=== PATIENT | female | born 1935 | race Caucasian/White ===

== ENCOUNTER → 2017-05-28 13:33 | Outpatient (CLI) | payer MEDICARE, OTHER, SELFPAY ==
[2017-05-28 14:45] LABS: Absolute Lymphocyte Count 1.37 X10^3/ul (0.83-4.51); Absolute Neutrophil Count 7.9 X10^3/uL (2.0-7.7); Basophil# 0.04 X10^3/uL; Basophil% 0.4 % (0-1); Eosinophil# 0.34 X10^3/uL; Eosinophils% 3.1 % (0-5); Hematocrit 38.7 % (37-47); Hemoglobin 12.3 g/dl (12.0-15.0); Lymphocyte # 1.37 X10^3/ul (4.0); Lymphocyte % 12.5 % (19-41); Mean Corp Hgb Conc 31.8 g/gl (32-36); Mean Corpuscular Hgb 30.1 pg (27.0-32.0); Mean Corpuscular Volume 94.9 fL (81-99); Mean Platelet Vol. 11.1 fl (6.2-12.0); Monocyte# 1.28 X10^3/uL; Monocyte% 11.7 % (0-10); Neutrophil # 7.86 X10^3/uL (2.7-7.7); Platelet Count 155 K/mm3 (150-450); RBC Distribution Width CV 13.8 % (11.6-14.6); Red Blood Count 4.08 M/mm3 (4.2-5.4); White Blood Count 10.9 K/mm3 (4.4-11.0)
[2017-05-28 14:48] LABS: POSITIVE COUNT NO; POSITIVE DIFFERENTIAL NO; POSITIVE MORPHOLOGY NO
[2017-05-28 15:25] LABS: Vitamin D,25 Hydroxy 25.1 ng/mL (19.95-100.01)
[2017-05-28 15:27] LABS: AST(SGOT) 9 U/L (15-37); Alanine Aminotransfer ALT/SGPT 12 U/L (13-56); Albumin, Serum 2.8 g/dL (3.2-5.0); Alkaline Phosphatase 79 U/L (45-117); Anion Gap 5 (5-15); BUN 27 mg/dL (7-18); BUN/Creat Ratio 24.5 RATIO (10-20); Calcium,Total 9.4 mg/dL (8.5-10.1); Chloride 107 mmol/L (98-107); EST Glomerular Filtration Rate 51 mL/min (>60); Est Glom Filt Rate - Afr Amer 62 mL/min (>60); Globulin 2.9 g/dL (2.2-4.2); Glucose 87 mg/dL (70-110); Potassium 4.4 mmol/L (3.5-5.1); Protein, Total 5.7 g/dL (6.4-8.2); Sodium Level 144 mmol/L (136-145); Thyroid Stim Hormone (TSH) 1.16 uIU/mL (0.358-3.74)
== END ==
PROVIDERS: Family Provider Family Medicine Geriatric Medicine; PCP Family Medicine Geriatric Medicine; Visit Provider Family Medicine Geriatric Medicine
DX: E55.9 Vitamin D deficiency, unspecified (principal); I10 Essential (primary) hypertension
CPT/HCPCS: 36415; 80053; 82306; 84443; 85025

== ENCOUNTER 2017-09-05 01:36 | Emergency (ER) | payer MEDICARE, OTHER, SELFPAY ==
[2017-09-05 01:37] VITALS: BP 161/71; PULSE 66; RESP 18; TEMP 36.7; O2SAT 93; BMI 51.1
--- NOTE | 2017-09-05 02:16 | ED.VISSUMM ---
- ER Visit Summary Date of Service: 09/05/17 Chief Complaint: Laceration History of Present Illness: The patient is a [address] Velazquez. She reports that she caught her right thigh on a screw on her wheelchair. Reports that she has a dull pain that is 1 out of 10 severity. She did not fall. No other injuries. She is unsure when her last tetanus shot was. Physical Examination: Vitals: Stable. Afebrile. General: Well-nourished and well-developed. Head: Normocephalic atraumatic. Neck: Supple, no lymphadenopathy. No JVD. Nontender. Cardiovascular: Regular rate and rhythm. No murmurs. Respiratory: No respiratory distress. Clear to auscultation bilaterally. Abdominal: Soft, nontender, nondistended, normal bowel sounds. No guarding, rebound, or peritoneal signs. Back: Nontender. Extremities: 2+ edema of her legs bilaterally. There is a 15 cm laceration to the medial right thigh with no active bleeding. This extends to subcutaneous tissue. She is neurovascularly intact distal to this. Skin: Normal color, no rash. Neurologic: Alert and oriented ?3. Cranial nerves II through XII are intact. Normal strength and sensation. Psych: Normal affect. Emergency Department Course and Treatment: Patient had her tetanus updated. She was given a dose of fentanyl IM and had the laceration repaired. She tolerated it well. Treatment Plan: The patient has weeping from her lymphedema from this wound. I do not feel that she requires admission to the hospital and the patient does not either. However, I did leave a message for case management in an attempt to set up home health care for the patient while this is healing. I suspect that she will need fairly frequent dressing changes to keep this dry. She is instructed to follow-up with Dr. Edmonds in 10-14 days for suture removal. Return to the emergency department for any worsening symptoms. Disposition: To home in improved and stable condition. Impression: 1. Right thigh laceration, 15 cm, repaired. Procedure note: Wound was cleansed with chlorhexidine soap. Anesthetized with 1% lidocaine without epinephrine. Copiously irrigated with normal saline. Wound was explored there is no foreign material present. It was closed with 10 simple interrupted 4-0 ethilon sutures. The patient tolerated it well. This note was generated with [employer] dictation software. It may contain incorrect words, spelling, and punctuation that were not noted in review of the chart prior to signing ED Disposition - Plan for ED Patient: Chief Complaint: Laceration Instructions: ED Laceration Ext Sutr Stap Tape Referrals: Fernando Velazquez Chi, MD [Primary Care Provider] - 10-14 Days suture removal
[2017-09-05] MEDS: Diphth,Pertuss(Acell),Tet Vac 0.5 ML Vial IM (02:21)
[2017-09-05] MEDS: fentaNYL 100 MCG/2 ML Ampul 50 MCG IM (02:22)
[2017-09-05 04:45] VITALS: PULSE 86; RESP 16; O2SAT 98
--- NOTE | 2017-09-05 09:41 | CM.ED ---
Voicemail received from Dr. Tran recommending home health setup for dressing changes. Call placed to Rima at [facility]. Rima states she'll call me back with determination. Awaiting return call.
--- NOTE | 2017-09-05 14:54 | CM.ED ---
Call from Rima with [facility] confirming that the patient has agreed to home health services. RN services for dressing changes will be provided and Dr. Velazquez will follow.
== END 2017-09-05 04:45 | disposition home or self-care (01) ==
PROVIDERS: Emergency Provider Emergency Medicine; Family Provider Family Medicine Geriatric Medicine; PCP Family Medicine Geriatric Medicine
DX: S71.111A Laceration without foreign body, right thigh, initial encounter (principal); W26.8XXA Contact with other sharp object(s), not elsewhere classified, initial encounter; Y93.9 Activity, unspecified; Y92.9 Unspecified place or not applicable; I89.0 Lymphedema, not elsewhere classified; J45.909 Unspecified asthma, uncomplicated; I10 Essential (primary) hypertension; Z79.899 Other long term (current) drug therapy
CPT/HCPCS: 12005; 90471; 90715; 96372; 99285

== ENCOUNTER → 2018-06-11 15:14 | Outpatient (CLI) | payer MEDICARE, OTHER, SELFPAY ==
[2018-06-11 17:00] LABS: Absolute Lymphocyte Count 1.59 X10^3/ul (0.83-4.51); Absolute Neutrophil Count 4.1 X10^3/uL (2.0-7.7); Basophil# 0.04 X10^3/uL; Basophil% 0.6 % (0-1); Eosinophil# 0.31 X10^3/uL; Eosinophils% 4.6 % (0-5); Hematocrit 37.3 % (37-47); Hemoglobin 12.1 g/dl (12.0-15.0); Lymphocyte # 1.59 X10^3/ul (4.0); Lymphocyte % 23.8 % (19-41); Mean Corp Hgb Conc 32.4 g/gl (32-36); Mean Corpuscular Hgb 30.3 pg (27.0-32.0); Mean Corpuscular Volume 93.5 fL (81-99); Mean Platelet Vol. 10.5 fl (6.2-12.0); Monocyte% 10.5 % (0-10); Neutrophil # 4.05 X10^3/uL (2.7-7.7); Neutrophil % 60.5 % (47-70); Platelet Count 158 K/mm3 (150-450); RBC Distribution Width CV 12.8 % (11.6-14.6); RBC Distribution Width SD 43.8 fl (35.1-43.9); Red Blood Count 3.99 M/mm3 (4.2-5.4); White Blood Count 6.7 K/mm3 (4.4-11.0)
[2018-06-11 17:01] LABS: POSITIVE COUNT NO; POSITIVE DIFFERENTIAL NO; POSITIVE MORPHOLOGY NO
[2018-06-11 17:14] LABS: Vitamin D,25 Hydroxy 48.6 ng/mL (29.95-100.01)
[2018-06-11 17:17] LABS: ALB/GLOB Ratio 1.1 RATIO (0.9-2.4); AST(SGOT) 16 U/L (15-37); Alanine Aminotransfer ALT/SGPT 14 U/L (13-56); Albumin, Serum 3.2 g/dL (3.2-5.0); Alkaline Phosphatase 66 U/L (45-117); Anion Gap 5 (5-15); BUN 22 mg/dL (7-18); BUN/Creat Ratio 16.3 RATIO (10-20); Calcium,Total 10.1 mg/dL (8.5-10.1); Chloride 106 mmol/L (98-107); Creatinine, Serum 1.35 mg/dL (0.55-1.02); EST Glomerular Filtration Rate 40 mL/min (>60); Est Glom Filt Rate - Afr Amer 48 mL/min (>60); Globulin 2.9 g/dL (2.2-4.2); Glucose 90 mg/dL (74-106); Potassium 4.7 mmol/L (3.5-5.1); Protein, Total 6.1 g/dL (6.4-8.2); Sodium Level 142 mmol/L (136-145); Thyroid Stim Hormone (TSH) 1.85 uIU/mL (0.358-3.74)
== END ==
PROVIDERS: Family Provider Family Medicine Geriatric Medicine; PCP Family Medicine Geriatric Medicine; Visit Provider Family Medicine Geriatric Medicine
DX: E55.9 Vitamin D deficiency, unspecified (principal); I10 Essential (primary) hypertension
CPT/HCPCS: 36415; 80053; 82306; 84443; 85025

== ENCOUNTER → 2019-03-09 13:19 | Outpatient (CLI) | payer MEDICARE, OTHER, SELFPAY ==
[2019-03-09 15:47] LABS: Absolute Lymphocyte Count 1.25 X10^3/uL (0.83-4.51); Absolute Neutrophil Count 4.3 X10^3/uL (2.0-7.7); Basophil# 0.05 X10^3/uL; Basophil% 0.7 % (0-1); Eosinophil# 0.63 X10^3/uL; Hematocrit 42.2 % (37-47); Hemoglobin 12.9 g/dL (12.0-15.0); Lymphocyte # 1.25 X10^3/ul (4.0); Lymphocyte % 17.9 % (19-41); Mean Corp Hgb Conc 30.6 g/dL (32-36); Mean Corpuscular Hgb 29.5 pg (27.0-32.0); Mean Corpuscular Volume 96.6 fL (81-99); Mean Platelet Vol. 10.2 fl (6.2-12.0); Monocyte# 0.72 X10^3/uL; Monocyte% 10.3 % (0-10); NRBC Flagged by Analyzer 0 % (0-5); Neutrophil # 4.29 X10^3/uL (2.7-7.7); Neutrophil % 61.7 % (47-70); Platelet Count 190 K/mm3 (150-450); RBC Distribution Width CV 12.6 % (11.6-14.6); RBC Distribution Width SD 44.9 fl (35.1-43.9); Red Blood Count 4.37 M/mm3 (4.2-5.4)
[2019-03-09 16:06] LABS: Vitamin D,25 Hydroxy 47.3 ng/mL (29.95-100.01)
[2019-03-09 16:20] LABS: ALB/GLOB Ratio 0.8 RATIO (0.9-2.4); AST(SGOT) 11 U/L (15-37); Alanine Aminotransfer ALT/SGPT 13 U/L (13-56); Albumin, Serum 2.8 g/dL (3.2-5.0); Alkaline Phosphatase 71 U/L (45-117); Anion Gap 2 (5-15); BUN 28 mg/dL (7-18); BUN/Creat Ratio 24.3 RATIO (10-20); Calcium,Total 9.4 mg/dL (8.5-10.1); Chloride 105 mmol/L (98-107); Creatinine, Serum 1.15 mg/dL (0.55-1.02); EST Glomerular Filtration Rate 48 mL/min (>60); Est Glom Filt Rate - Afr Amer 58 mL/min (>60); Globulin 3.6 g/dL (2.2-4.2); Glucose 79 mg/dL (74-106); Potassium 4.5 mmol/L (3.5-5.1); Protein, Total 6.4 g/dL (6.4-8.2); Sodium Level 141 mmol/L (136-145); Thyroid Stim Hormone (TSH) 3.08 uIU/mL (0.358-3.74)
[2019-03-09 17:07] LABS: M R Staph aureus DNA By PCR Negative (Negative); Probe Check PASS; Staph aureus DNA By PCR POSITIVE (Negative)
== END ==
PROVIDERS: Family Provider Family Medicine Geriatric Medicine; PCP Family Medicine Geriatric Medicine; Visit Provider Family Medicine Geriatric Medicine
DX: I10 Essential (primary) hypertension (principal); E55.9 Vitamin D deficiency, unspecified; B95.62 Methicillin resistant Staphylococcus aureus infection as the cause of diseases classified elsewhere
CPT/HCPCS: 36415; 80053; 82306; 84443; 85025; 87070; 87077; 87186; 87205; 87640

== ENCOUNTER 2019-03-23 14:00 | Outpatient (RCR) | payer MEDICARE, OTHER, SELFPAY ==
[2019-03-16 13:59] VITALS: BP 151/62; PULSE 132; RESP 18; TEMP 36.7
--- NOTE | 2019-03-16 16:46 | PCM.WC.HP ---
(1) Ulcer of left lower leg Status: Acute Current Visit: Yes Code(s): L97.929 - Non-pressure chronic ulcer of unspecified part of left lower leg with unspecified severity (2) Edema Status: Chronic Current Visit: Yes Code(s): R60.9 - Edema, unspecified (3) Debility Status: Chronic Current Visit: Yes Code(s): R53.81 - Other malaise History of Present Illness Date of Service: 03/17/19 Chief Complaint: Opened area on left lower leg that will not heal. History of Wound: Patient sits in her hover round. She is able to stand to transfer. She hit her left leg several weeks ago and developed a big bruise. She has been doing hydrogen peroxide and neosporin to the opened area. She went to see her PCP who placed her on Keflex and Doxycycline which she just finished today. Her PCP also did a wound culture on 03/09/19 which grew Pseudomonas aeroginosa and Pasturella species. Will start her on Levaquin daily. Wound care: Alysa with tubigrip three times per week. Will order home health to assist with wound care. She lives at home and her son and daughter in law live with her but her son has a bad back and no one assists her with her care. Will order Arterial and venous studies. We are unable to get her out of her wheelchair on to a bed for ABIs. Today she denies fever and states she has a good appetite. Past Medical History Past Medical History: Chronic Problems Edema (Chronic) Debility (Chronic) GERD (gastroesophageal reflux disease) (Chronic) Depression (Chronic) Tinea corporis (Chronic) Hyperlipidemia (Chronic) Tinea cruris (Chronic) Lymphedema (Chronic) Rheumatoid arthritis (Chronic) HTN (hypertension) (Chronic) Hypothyroid (Chronic) Fibromyalgia (Chronic) Whitney rash of groin (Chronic) Surgical History: appendectomy, cholecystectomy, hysterectomy, mastectomy - Bilateral., tonsillectomy, - - 9 breast lumps removed, breast reduction. Allergies/Adverse Reactions: Allergies lisinopril Allergy (Verified 09/05/17 01:37) Unknown Penicillins Allergy (Verified 03/16/19 14:52) Unknown Home Medications: Ambulatory Orders Medication Instructions Recorded Baclofen 10 mg PO QHS 04/29/17 Folic Acid 1 mg PO DAILY@0800 04/29/17 Levothyroxine [Synthroid] 75 mcg PO DAILY 04/29/17 Nebivolol HCl [Bystolic] 5 mg PO DAILY 04/29/17 Albuterol Inhaler [Ventolin Hfa 2 puff INHALATION Q4H PRN PRN 03/16/19 (SP)] Esomeprazole Mag Trihydrate 40 mg PO DAILY 03/16/19 [Nexium] Multivitamin with Minerals 1 ea PO DAILY 03/16/19 [Multiple Vitamin] Valsartan/Hydrochlorothiazide 1 ea PO DAILY 03/16/19 [Valsartan-Hctz 320-25 mg Tab] Vortioxetine Hydrobromide 10 mg PO DAILY 03/16/19 [Trintellix] - Family History Paternal No pertinent history Maternal - - no heart disease Smoking Status: Never smoker Review of Systems Constitutional: Denies: Chills, Fever, Weight Change Eyes: Denies: Pain, Vision Change HEENT: Denies: Difficulty Hearing, Difficulty Swallowing, Sinus Congestion Cardiovascular: Denies: Chest Pain, Palpitations Respiratory: Denies: Cough, Shortness of Breath Musculoskeletal: Reports: Joint stiffness Skin: Reports: Dryness, Wounds - left medial distal leg ulcer Neurological: Denies: Slurred speech, Confusion, Difficulty swallowing Psychiatric: Denies: Anxiety Endocrine: Denies: Heat/ Cold Intolerance - Physical Exam Vital Signs Temp Pulse Resp BP 98.1 F 132 H 18 151/62 H 03/16/19 13:59 03/16/19 13:59 03/16/19 13:59 03/16/19 13:59 General: Alert, Oriented x3, Cooperative HEENT: Atraumatic Oral: Moist Mucosa Lungs: Clear to auscultation, Normal air movement, No rhonchi, No wheeze Cardiovascular: Regular rate, Regular Rhythm Abdomen: Bowel Sounds Present, Soft, Obese Extremities: Capillary Refill Less than 3 Seconds, Diminished Peripheral Pulses, Edema Skin: Ulcer/ Wound - left medial distal leg ulcer Wound Measurements and Assessment WC - Nurse 1 - General Ulcer Measurement Start: 03/16/19 13:58 Freq: Status: Active Protocol: Activity Type Activity Date Activity User E-Sign Co-Sign Detail Recorded Client Recorded Date Recorded By Document 03/16/19 13:59 MW [id number] 03/16/19 14:20 MW 03/16/19 13:59 Wound Center Nurse 1 [Ulcer Assessment] #1 left medial LE -Combined with other wound No -Current Size (cm) - Length 3.6 -Current Size (cm) - Width 5.5 -Current Size (cm) - Depth 0.1 -Total Square Cm 19.80 -Date of Last Picture (Recall this 03/16/19 field) -Photo Taken Yes -Epithelialization None Present -Tunneling No -Undermining/Tunneling No -Circular Undermining No -Exudate Amt Large -Exudate Type Serosanguineous -Wound Margin Flat & Intact -Granulation Amt Medium (34-66%) -Granulation Quality Red -Necrosis Amt Medium (34-66%) -Necrotic Tissue Type Adherent Slough -Structure Exposed N/A -Texture (Kathryn-wound Skin Appearance) Assessed, Localized Edema -Moisture (Kathryn-wound Skin Appearance No Abnormality, ) Assessed -Color (Kathryn-wound Skin Appearance) Assessed, Hemosiderin Staining -Temperature (Kathryn-wound Skin No Abnormality Appearance) (Pt Warm) -Tenderness on Palpation (Kathryn-wound Yes Skin Appearance) -Ulcer Cleansing Rinsed/ Irrigated with Saline -Foul Odor after Cleansing No -Anesthetic Used 5% Lidocaine Gel [Edema Assessment] -Lower Limb Edema Present Yes -Right Calf (cm) 49.0 -Right Ankle (cm) 26.5 -Left Calf (cm) 49.0 -Left Ankle (cm) 27.5 WC - Nurse 2 - General Ulcer CM Notes Start: 03/16/19 13:58 Freq: Status: Active Protocol: Activity Type Activity Date Activity User E-Sign Co-Sign Detail Recorded Client Recorded Date Recorded By Document 03/16/19 14:55 [id number] 03/16/19 14:56 03/16/19 14:55 Wound Center Nurse 2 [Procedure/Treatment] #1 left medial LE -Time 14:55 -Correct Patient Yes -Correct Side, Site, Position Yes -Correct Procedure Yes -Procedure Performed Yes -Type of Procedure Debridement -Clinical Debridement Subcutaneous -Post Debridement Size (cm) - Length 3.5 -Post Debridement Size (cm) - Width 4.3 -Post Debridement Size (cm) - Depth 0.3 -Total Square Cm 15.05 -Wound/Ulcer Outcome Not Healed -Ulcer Cleansing Rinsed/ Irrigated with Saline -Foul Odor after Cleansing No -Bioengineered Tissue No -Bleeding Controlled with Pressure -Offloading No -Treatment Response Procedure Tolerated Well [See Physician Procedure note for Specifics] Pain Scale: 0-10 Numeric [Pain] -Is Patient Pain Free? Yes Musculoskeletal: No Tenderness to Palpation of Joints or Extremities Neurological: Neuro grossly intact Psych/Mental Status: Normal Affect, Appropriate Debridement Note Post-Debridement Measurements/Treatment WC - Nurse 2 - General Ulcer CM Notes Start: 03/16/19 13:58 Freq: Status: Active Protocol: Activity Type Activity Date Activity User E-Sign Co-Sign Detail Recorded Client Recorded Date Recorded By Document 03/16/19 14:55 [id number] 03/16/19 14:56 03/16/19 14:55 Wound Center Nurse 2 #1 left medial LE -Time 14:55 -Correct Patient Yes -Correct Side, Site, Position Yes -Correct Procedure Yes -Procedure Performed Yes -Type of Procedure Debridement -Clinical Debridement Subcutaneous -Post Debridement Size (cm) - Length 3.5 -Post Debridement Size (cm) - Width 4.3 -Post Debridement Size (cm) - Depth 0.3 -Total Square Cm 15.05 -Wound/Ulcer Outcome Not Healed -Ulcer Cleansing Rinsed/ Irrigated with Saline -Foul Odor after Cleansing No -Bioengineered Tissue No -Bleeding Controlled with Pressure -Offloading No -Treatment Response Procedure Tolerated Well Pain Scale: 0-10 Numeric Is Patient Pain Free? Yes Wound debrided: medial distal leg Laterality: Left Type of Debridement: Excisional debridement Anesthesia Used: 5% Lidocaine Gel Depth: Down to and including healthy tissue, in the subcutaneous layer Percentage of wound debrided: 100 Instrument Used: 5mm curette Tissue Removed: subcutaneous tissue and slough Severity: Fat Layer Exposed Amount of bleeding with debridement: Mild Bleeding Controlled with: Pressure, Compression and gauze Patient tolerated procedure well Assessment/Plan Active Problems Ulcer of left lower leg (Acute) Edema (Chronic) Debility (Chronic) Assessment: 1. Ulcer of left lower leg. 2. Edema. 3. Debility Plan: Patient was evaluated in the wound care center today and a subcutaneous debridement was performed. Patient sits in a wheelchair and hit her left leg several weeks ago and developed a big bruise. She states that it did bleed some. She has been doing hydrogen peroxide and neosporin to the opened area. She went to see her PCP who placed her on Keflex and Doxycycline which she just finished today. Her PCP also did a wound culture on 03/09/19 which grew Pseudomonas aeroginosa and Pasturella species. Will start her on Levaquin daily. Wound care: Alysa with tubigrip three times per week. Will order home health to assist with wound care. She lives at home and her son and daughter in law live with her but her son has a bad back and no one assists her with her care. Will order Arterial and venous studies. We are unable to get her out of her wheelchair on to a bed for ABIs. Encouraged increase in protein intake to help with wound healing. Code Visit Office Visits / Consults: [id number] OV L4 Est - 25 modifier 111xxx-113xx: [id number] Corinne subq tissue 20 sq cm/<
[2019-03-23 14:13] VITALS: PULSE 88; RESP 18; TEMP 36.6
--- NOTE | 2019-03-23 17:04 | PCM.WC.PN ---
(1) Ulcer of left lower leg Status: Chronic Code(s): L97.929 - Non-pressure chronic ulcer of unspecified part of left lower leg with unspecified severity (2) Edema Status: Chronic Code(s): R60.9 - Edema, unspecified (3) Debility Status: Chronic Code(s): R53.81 - Other malaise Type of Wound Date of Service: 03/23/19 Chief Complaint: Opened area on left lower leg that will not heal. History of Wound: Patient sits in her hover round. She is able to stand to transfer. She hit her left leg several weeks ago and developed a big bruise. She has been doing hydrogen peroxide and neosporin to the opened area. She went to see her PCP who placed her on Keflex and Doxycycline which she just finished today. Her PCP also did a wound culture on 03/09/19 which grew Pseudomonas aeroginosa and Pasturella species. Will start her on Levaquin daily. Wound care: Alysa with tubigrip with dressing changes three times per week. Will order home health to assist with wound care. She lives at home and her son and daughter in law live with her but her son has a bad back and no one assists her with her care. Will order Arterial and venous studies. We are unable to get her out of her wheelchair on to a bed for ABIs. Today she denies fever and states she has a good appetite. Progress of Wound: Improved - Physical Exam Vital Signs Temp Pulse Resp BP 98 F 88 18 151/62 H 03/23/19 14:13 03/23/19 14:13 03/23/19 14:13 03/16/19 13:59 General: Alert, Oriented x3, Cooperative HEENT: Atraumatic Oral: Moist Mucosa Lungs: Normal air movement Cardiovascular: Regular rate Abdomen: Obese Extremities: Capillary Refill Less than 3 Seconds, Diminished Peripheral Pulses, Edema Skin: Ulcer/ Wound - Left medial ankle/distal lower leg Wound Measurements and Assessment WC - Nurse 1 - General Ulcer Measurement Start: 03/16/19 13:58 Freq: Status: Active Protocol: Activity Type Activity Date Activity User E-Sign Co-Sign Detail Recorded Client Recorded Date Recorded By Document 03/23/19 14:13 RB [id number] 03/23/19 14:16 RB 03/23/19 14:13 Wound Center Nurse 1 [Ulcer Assessment] #1 left medial LE -Current Size (cm) - Length 3.5 -Current Size (cm) - Width 5.5 -Current Size (cm) - Depth 6.2 -Total Square Cm 19.25 -Photo Taken No -Exudate Amt Small -Exudate Type Serosanguineous -Wound Margin Distinct, Outline Attached -Granulation Amt Large (67-100%) -Granulation Quality Red -Necrosis Amt Small (1-33%) -Necrotic Tissue Type Adherent Slough -Structure Exposed N/A -Texture (Kathryn-wound Skin Appearance) Scarring -Moisture (Kathryn-wound Skin Appearance No Abnormality ) -Color (Kathryn-wound Skin Appearance) Hemosiderin Staining -Temperature (Kathryn-wound Skin No Abnormality Appearance) (Pt Warm) -Tenderness on Palpation (Kathryn-wound No Skin Appearance) -Foul Odor after Cleansing No -Anesthetic Used 4% Lidocaine Solution [Edema Assessment] -Left Calf (cm) 47 -Left Ankle (cm) 27 WC - Nurse 2 - General Ulcer CM Notes Start: 03/16/19 13:58 Freq: Status: Active Protocol: Activity Type Activity Date Activity User E-Sign Co-Sign Detail Recorded Client Recorded Date Recorded By Document 03/23/19 14:51 [id number] 03/23/19 14:52 03/23/19 14:51 Wound Center Nurse 2 [Procedure/Treatment] #1 left medial LE -Time 14:52 -Correct Patient Yes -Correct Side, Site, Position Yes -Correct Procedure Yes -Procedure Performed Yes -Type of Procedure Debridement -Clinical Debridement Subcutaneous -Post Debridement Size (cm) - Length 3.5 -Post Debridement Size (cm) - Width 5 -Post Debridement Size (cm) - Depth 0.3 -Total Square Cm 17.5 -Wound/Ulcer Outcome Not Healed -Ulcer Cleansing Rinsed/ Irrigated with Saline -Foul Odor after Cleansing No -Bioengineered Tissue No -Bleeding Controlled with Pressure -Offloading No -Treatment Response Procedure Tolerated Well [See Physician Procedure note for Specifics] Pain Scale: 0-10 Numeric [Pain] -Is Patient Pain Free? Yes Musculoskeletal: No Tenderness to Palpation of Joints or Extremities Neurological: Neuro grossly intact Psych/Mental Status: Normal Affect, Appropriate Debridement Note Post-Debridement Measurements/Treatment WC - Nurse 2 - General Ulcer CM Notes Start: 03/16/19 13:58 Freq: Status: Active Protocol: Activity Type Activity Date Activity User E-Sign Co-Sign Detail Recorded Client Recorded Date Recorded By Document 03/16/19 14:55 [id number] 03/16/19 14:56 Document 03/23/19 14:51 [id number] 03/23/19 14:52 03/16/19 03/23/19 14:55 14:51 Wound Center Nurse 2 #1 left medial LE -Time 14:55 14:52 -Correct Patient Yes Yes -Correct Side, Site, Position Yes Yes -Correct Procedure Yes Yes -Procedure Performed Yes Yes -Type of Procedure Debridement Debridement -Clinical Debridement Subcutaneous Subcutaneous -Post Debridement Size (cm) - Length 3.5 3.5 -Post Debridement Size (cm) - Width 4.3 5 -Post Debridement Size (cm) - Depth 0.3 0.3 -Total Square Cm 15.05 17.5 -Wound/Ulcer Outcome Not Healed Not Healed -Ulcer Cleansing Rinsed/ Rinsed/ Irrigated with Irrigated with Saline Saline -Foul Odor after Cleansing No No -Bioengineered Tissue No No -Bleeding Controlled with Pressure Pressure -Offloading No No -Treatment Response Procedure Procedure Tolerated Well Tolerated Well Pain Scale: 0-10 Numeric Is Patient Pain Free? Yes Yes Wound debrided: medial ankle/distal leg Laterality: Left Type of Debridement: Excisional debridement Anesthesia Used: 5% Lidocaine Gel Depth: Down to and including healthy tissue, in the subcutaneous layer Percentage of wound debrided: 100 Instrument Used: 5mm curette Tissue Removed: Subcutaneous tissue and slough Severity: Fat Layer Exposed Amount of bleeding with debridement: Mild Bleeding Controlled with: Pressure Patient tolerated procedure well Assessment/Plan Assessment: 1. Ulcer of left lower leg. 2. Edema. 3. Debility Plan: Patient was evaluated in the wound care center today and a subcutaneous debridement was performed. Patient sits in a wheelchair and hit her left leg several weeks ago and developed a big bruise. She states that it did bleed some. She had been applying hydrogen peroxide and neosporin to the opened area. She went to see her PCP who placed her on Keflex and Doxycycline which she just finished today. Her PCP also did a wound culture on 03/09/19 which grew Pseudomonas aeroginosa and Pasturella species. Will start her on Levaquin daily. Wound care: Alysa with tubigrip three times per week. Will order home health to assist with wound care. She lives at home and her son and daughter in law live with her but her son has a bad back and no one assists her with her care. Will order Arterial and venous studies which is scheduled 03/30. Encouraged increase in protein intake to help with wound healing. Follow up in one week. Code Visit 111xxx-113xx: [id number] Corinne subq tissue 20 sq cm/<
== END 2019-03-27 23:59 ==
LOC: WC 14:00
PROVIDERS: Family Provider Family Medicine Geriatric Medicine; PCP Family Medicine Geriatric Medicine; Visit Provider Nurse Practitioner Family
DX: L97.822 Non-pressure chronic ulcer of other part of left lower leg with fat layer exposed (principal); R60.0 Localized edema; K21.9 Gastro-esophageal reflux disease without esophagitis; F32.9 Major depressive disorder, single episode, unspecified; E78.5 Hyperlipidemia, unspecified; E03.9 Hypothyroidism, unspecified; M06.9 Rheumatoid arthritis, unspecified; I10 Essential (primary) hypertension; I89.0 Lymphedema, not elsewhere classified; M79.7 Fibromyalgia; Z79.899 Other long term (current) drug therapy
CPT/HCPCS: 11042; 99213; G0463

== ENCOUNTER 2019-03-30 12:45 | Outpatient (RCR) | payer MEDICARE, OTHER, SELFPAY ==
--- NOTE | 2019-03-30 12:49 | VDLE_ITS ---
Reason For Study: ULCER RIGHT LEFT FV is compressible, spontaneous, phasic, FV is compressible, spontaneous, phasic, competent and demonstrates normal competent and demonstrates normal augmentation. augmentation. POP V is compressible, spontaneous, phasic, POP V is compressible, spontaneous, phasic, competent and demonstrates normal competent and demonstrates normal augmentation. augmentation. T/P Trunk is compressible. T/P Trunk is compressible. PTV is compressible. PTV is compressible. RT PerV is compressible. LT PerV is compressible. Rt CFV/SFJ not visualized due to pannus. Left CFV was not visualized due to pannus. Rt GSV at SFJ was not visualized due to Left GSV at SFJ is compressible and pannus. competent. Rt GSV prox to distal thigh was compressible Left GSV above knee was compressible and and competent. competent. Rt GSV below knee was compressible and Left GSV below knee was compressible and competent to mid calf. competent. Rt GSV distal calf was INCOMPETENT for Left SSV was compressible and competent. greater than .5 sec. Unable to assess distal GSV due to ulcer. Rt SSV is compressible and competent Study was technically limited. throughout. Study was technically limited. Procedure Exam performed in department. The exam was of poor technical quality due to pt body habitus. A preliminary report was called and/or faxed to [facility]. UNABLE TO PERFORM ARTERIAL STUDY DUE TO PT PAIN INTOLERANCE. Interpretation Summary Deep veins of the lower extremities are bilaterally patent and compressible segmentally. There is no evidence of deep vein thrombosis on either side. Valvular competence appears intact within the proximal deep venous systems bilaterally. The great saphenous veins appear bilaterally patent and compressible segmentally. The common femoral veins bilaterally, and the right sapheno-femoral junction, were not visualized due to the patient's pannus. The right great saphenous vein is competent from the proximal thigh to the mid-calf, but incompetent in the right distal calf. The left great saphenous vein appears segmentally competent. The distal left great saphenous vein was not assessed due to the presence of an ulcer. Small saphenous veins are patent and competent bilaterally. Ordering Physician: Angie Suresh Referring Physician: SANJU WILLIAM CHI Performed By: Celina Whitley, KHOA, RVT
[2019-03-30 14:35] VITALS: BMI 51.1
--- NOTE | 2019-03-30 16:17 | PN.PCM_ITS ---
(1) Ulcer of left lower leg Status: Chronic Code(s): L97.929 - Non-pressure chronic ulcer of unspecified part of left lower leg with unspecified severity (2) Edema Status: Chronic Code(s): R60.9 - Edema, unspecified (3) Lymphedema Status: Chronic Code(s): I89.0 - Lymphedema, not elsewhere classified (4) Debility Status: Chronic Code(s): R53.81 - Other malaise Type of Wound Date of Service: 03/30/19 Chief Complaint: Opened area on left lower leg that will not heal. History of Wound: Patient sits in her hover round. She is able to stand to transfer. She hit her left leg several weeks ago and developed a big bruise. She has been doing hydrogen peroxide and neosporin to the opened area. She went to see her PCP who placed her on Keflex and Doxycycline which she just finished today. Her PCP also did a wound culture on 03/09/19 which grew Pseudomonas aeroginosa and Pasturella species. She completes the Levaquin tomorrow. Wound care: Alysa with double Tubigrip with dressing changes three times per week. She has home health to assist with wound care. She lives at home and her son and daughter in law live with her but her son has a bad back and no one assists her with her care. On 03/30/2019 she had her venous studies which showed deep veins of the lower extremities are bilaterally patent and compressible segmentally. There is no evidence of deep vein thrombosis on either side. Valvular competence appears intact within the proximal deep venous systems bilaterally. The great saphenous veins appear bilaterally patent and compressible segmentally. The common femoral veins bilaterally and the right sapheno-femoral junction, were not visualized to the patient's pannus. The right great saphenous vein is competent from the proximal thigh to the mid?calf, but incompetent in the right distal calf. The left great saphenous vein appears segmentally Competent. The distal left great saphenous vein was not assessed due the presence of an ulcer. Small saphenous veins are patent and competent bi laterally. Patient declined the arterial studies due to they were uncomfortable for her. Today she denies fever and states she has a good appetite. Progress of Wound: Stable. - Physical Exam General: Alert, Oriented x3, Cooperative HEENT: Atraumatic Oral: Moist Mucosa Lungs: Normal air movement Cardiovascular: Regular rate Abdomen: Obese Extremities: Capillary Refill Less than 3 Seconds, Diminished Peripheral Pulses, Edema Skin: Ulcer/ Wound - Left medial lower leg ulcer. Wound Measurements and Assessment WC - Nurse 1 - General Ulcer Measurement Start: 03/30/19 14:35 Freq: Status: Active Protocol: Activity Type Activity Date Activity User E-Sign Co-Sign Detail Recorded Client Recorded Date Recorded By Document 03/30/19 14:35 [facility] [id number] 03/30/19 14:42 [facility] 03/30/19 14:35 Wound Center Nurse 1 [Ulcer Assessment] #1 left medial LE -Combined with other wound No -Current Size (cm) - Length 3.1 -Current Size (cm) - Width 3.9 -Current Size (cm) - Depth 0.1 -Total Square Cm 12.09 -Photo Taken No -Epithelialization Small 1-33% -Tunneling No -Undermining/Tunneling No -Circular Undermining No -Exudate Amt Small -Exudate Type Serosanguineous -Wound Margin Distinct, Outline Attached -Granulation Amt Large (67-100%) -Granulation Quality Red -Slough/Fibrin Yes -Necrosis Amt Small (1-33%) -Necrotic Tissue Type Adherent Slough -Texture (Kathryn-wound Skin Appearance) Assessed, Scarring -Moisture (Kathryn-wound Skin Appearance Assessed,Dry/ ) Scaly -Color (Kathryn-wound Skin Appearance) Assessed -Temperature (Kathryn-wound Skin No Abnormality Appearance) (Pt Warm) -Tenderness on Palpation (Kathryn-wound No Skin Appearance) -Ulcer Cleansing Rinsed/ Irrigated with Saline -Foul Odor after Cleansing No -Anesthetic Used 5% Lidocaine Gel [Edema Assessment] -Lower Limb Edema Present Yes -Left Calf (cm) 47 -Left Ankle (cm) 27.1 - Nurse 2 - General Ulcer CM Notes Start: 03/30/19 14:35 Freq: Status: Active Protocol: Activity Type Activity Date Activity User E-Sign Co-Sign Detail Recorded Client Recorded Date Recorded By Document 03/30/19 14:56 [id number] 03/30/19 14:59 03/30/19 14:56 Wound Center Nurse 2 [Procedure/Treatment] #1 left medial LE -Time 14:59 -Correct Patient Yes -Correct Side, Site, Position Yes -Correct Procedure Yes -Procedure Performed Yes -Type of Procedure Debridement -Clinical Debridement Subcutaneous -Post Debridement Size (cm) - Length 3.0 -Post Debridement Size (cm) - Width 3.5 -Post Debridement Size (cm) - Depth 0.3 -Total Square Cm 10.50 -Wound/Ulcer Outcome Not Healed -Ulcer Cleansing Rinsed/ Irrigated with Saline -Foul Odor after Cleansing No -Bioengineered Tissue No -Bleeding Controlled with Pressure -Offloading No -Treatment Response Procedure Tolerated Well [See Physician Procedure note for Specifics] Pain Scale: 0-10 Numeric [Pain] -Is Patient Pain Free? Yes Musculoskeletal: No Tenderness to Palpation of Joints or Extremities Neurological: Neuro grossly intact Psych/Mental Status: Normal Affect, Appropriate Debridement Note Post-Debridement Measurements/Treatment WC - Nurse 2 - General Ulcer CM Notes Start: 03/30/19 14:35 Freq: Status: Active Protocol: Activity Type Activity Date Activity User E-Sign Co-Sign Detail Recorded Client Recorded Date Recorded By Document 03/30/19 14:56 [id number] 03/30/19 14:59 03/30/19 14:56 Wound Center Nurse 2 #1 left medial LE -Time 14:59 -Correct Patient Yes -Correct Side, Site, Position Yes -Correct Procedure Yes -Procedure Performed Yes -Type of Procedure Debridement -Clinical Debridement Subcutaneous -Post Debridement Size (cm) - Length 3.0 -Post Debridement Size (cm) - Width 3.5 -Post Debridement Size (cm) - Depth 0.3 -Total Square Cm 10.50 -Wound/Ulcer Outcome Not Healed -Ulcer Cleansing Rinsed/ Irrigated with Saline -Foul Odor after Cleansing No -Bioengineered Tissue No -Bleeding Controlled with Pressure -Offloading No -Treatment Response Procedure Tolerated Well Pain Scale: 0-10 Numeric Is Patient Pain Free? Yes Wound debrided: Medial lower leg ulcer Laterality: Left Type of Debridement: Excisional debridement Anesthesia Used: 5% Lidocaine Gel Depth: Down to and including healthy tissue, in the subcutaneous layer Percentage of wound debrided: 100 Instrument Used: 5mm curette Tissue Removed: Subcutaneous tissue and slough Severity: Fat Layer Exposed Amount of bleeding with debridement: Mild Bleeding Controlled with: Pressure Patient tolerated procedure well Assessment/Plan Assessment: 1. Ulcer of left lower leg. 2. Edema. 3. Debility Plan: Patient was evaluated in the wound care center today and a subcutaneous debridement was performed. Patient sits in a wheelchair and hit her left leg several weeks ago and developed a big bruise. She states that it did bleed some. She had been applying hydrogen peroxide and neosporin to the opened area. She went to see her PCP who placed her on Keflex and Doxycycline which she completed. Her PCP also did a wound culture on 03/09/19 which grew Pseudomonas aeroginosa and Pasturella species. She will complete Levaquin tomorrow. Wound care: Alysa with double Tubigrip three times per week. She has home health to assist with wound care. She lives at home and her son and daughter in law live with her but her son has a bad back and no one assists her with her care. She had venous studies on 03/30/19 which showed the common femoral vein bilaterally in the right saphenous?femoral junction, were not visualized due to the patient's pannus. The right great saphenous vein is competent from the proximal thigh to the mid?calf, but incompetent in the right distal calf. The left great saphenous vein appears segmentally competent. The distal left great saphenous vein was not assessed due the presence of an ulcer. Patient declined the arterial studies. Encouraged increase in protein intake to help with wound healing. Follow up in one week. Code Visit [id number]: [id number] Corinne subq tissue 20 sq cm/<
== END 2019-04-27 23:59 ==
LOC: CVS 12:45
PROVIDERS: Family Provider Family Medicine Geriatric Medicine; PCP Family Medicine Geriatric Medicine; Referring Provider Nurse Practitioner Family; Visit Provider Nurse Practitioner Family
DX: L97.929 Non-pressure chronic ulcer of unspecified part of left lower leg with unspecified severity (principal); R60.0 Localized edema; I73.9 Peripheral vascular disease, unspecified; L97.822 Non-pressure chronic ulcer of other part of left lower leg with fat layer exposed; I89.0 Lymphedema, not elsewhere classified; R60.9 Edema, unspecified
CPT/HCPCS: 11042; 93970

== ENCOUNTER 2019-04-19 10:45 | Outpatient (RCR) | payer MEDICARE, OTHER, SELFPAY ==
[2019-03-28 01:19] VITALS: BP 151/62; PULSE 88; RESP 18; TEMP 36.6
[2019-04-06 14:38] VITALS: RESP 16; TEMP 36.6; BMI 51.1
--- NOTE | 2019-04-06 16:55 | PN.PCM_ITS ---
(1) Ulcer of left lower leg Status: Chronic Code(s): L97.929 - Non-pressure chronic ulcer of unspecified part of left lower leg with unspecified severity (2) Edema Status: Chronic Code(s): R60.9 - Edema, unspecified (3) Lymphedema Status: Chronic Code(s): I89.0 - Lymphedema, not elsewhere classified (4) Debility Status: Chronic Code(s): R53.81 - Other malaise Type of Wound Date of Service: 04/06/19 Chief Complaint: Opened area on left lower leg that will not heal. History of Wound: Patient sits in her hover round. She is able to stand to transfer. She hit her left leg several weeks ago and developed a big bruise. She has been doing hydrogen peroxide and neosporin to the opened area. She went to see her PCP who placed her on Keflex and Doxycycline which she just finished today. Her PCP also did a wound culture on 03/09/19 which grew Pseudomonas aeroginosa and Pasturella species. She completes the Levaquin tomorrow. Wound care: Alysa with double Tubigrip with dressing changes three times per week. She has home health to assist with wound care. She lives at home and her son and daughter in law live with her but her son has a bad back and no one assists her with her care. On 03/30/2019 she had her venous studies which showed deep veins of the lower extremities are bilaterally patent and compressible segmentally. There is no evidence of deep vein thrombosis on either side. Valvular competence appears intact within the proximal deep venous systems bilaterally. The great saphenous veins appear bilaterally patent and compressible segmentally. The common femoral veins bilaterally and the right sapheno-femoral junction, were not visualized to the patient's pannus. The right great saphenous vein is competent from the proximal thigh to the mid?calf, but incompetent in the right distal calf. The left great saphenous vein appears segmentally Competent. The distal left great saphenous vein was not assessed due the presence of an ulcer. Small saphenous veins are patent and competent bi laterally. Patient declined the arterial studies due to they were uncomfortable for her. Today she denies fever and states she has a good appetite. Progress of Wound: Improved - Physical Exam Vital Signs Temp Pulse Resp BP 98 F 88 16 151/62 H 04/06/19 14:38 03/28/19 01:19 04/06/19 14:38 03/28/19 01:19 General: Alert, Oriented x3, Cooperative HEENT: Atraumatic Oral: Moist Mucosa Lungs: Normal air movement Cardiovascular: Regular rate Abdomen: Obese Extremities: Capillary Refill Less than 3 Seconds, Diminished Peripheral Pulses, Edema Skin: Ulcer/ Wound - left anterior lower leg Wound Measurements and Assessment - Nurse 1 - General Ulcer Measurement Start: 03/30/19 14:47 Freq: Status: Active Protocol: Activity Type Activity Date Activity User E-Sign Co-Sign Detail Recorded Client Recorded Date Recorded By Document 04/06/19 14:38 [facility] [id number] 04/06/19 14:46 [facility] 04/06/19 14:38 Wound Center Nurse 1 [Ulcer Assessment] #1 left medial LE -Combined with other wound No -Current Size (cm) - Length 2 -Current Size (cm) - Width 3.8 -Current Size (cm) - Depth 0.1 -Total Square Cm 7.6 -Photo Taken No -Epithelialization None Present -Tunneling No -Undermining/Tunneling No -Circular Undermining No -Exudate Amt Small -Exudate Type Sanguineous -Wound Margin Distinct, Outline Attached -Granulation Amt Small (1-33%) -Granulation Quality Pale,Red -Slough/Fibrin Yes -Necrosis Amt Large (67-100%) -Necrotic Tissue Type Adherent Slough -Texture (Kathryn-wound Skin Appearance) Assessed, Scarring -Moisture (Kathryn-wound Skin Appearance Assessed,Dry/ ) Scaly -Color (Kathryn-wound Skin Appearance) Assessed -Temperature (Kathryn-wound Skin No Abnormality Appearance) (Pt Warm) -Tenderness on Palpation (Kathryn-wound No Skin Appearance) -Ulcer Cleansing Rinsed/ Irrigated with Saline -Foul Odor after Cleansing No -Anesthetic Used 5% Lidocaine Gel [Edema Assessment] -Lower Limb Edema Present Yes -Left Calf (cm) 47.5 -Left Ankle (cm) 27 - Nurse 2 - General Ulcer CM Notes Start: 03/30/19 14:47 Freq: Status: Active Protocol: Activity Type Activity Date Activity User E-Sign Co-Sign Detail Recorded Client Recorded Date Recorded By Document 04/06/19 15:19 [id number] 04/06/19 15:20 04/06/19 15:19 Wound Center Nurse 2 [Procedure/Treatment] #1 left medial LE -Time 15:20 -Correct Patient Yes -Correct Side, Site, Position Yes -Correct Procedure Yes -Procedure Performed Yes -Type of Procedure Debridement -Clinical Debridement Subcutaneous -Post Debridement Size (cm) - Length 2.3 -Post Debridement Size (cm) - Width 3.0 -Post Debridement Size (cm) - Depth 0.1 -Total Square Cm 6.90 -Wound/Ulcer Outcome Not Healed -Ulcer Cleansing Rinsed/ Irrigated with Saline -Foul Odor after Cleansing No -Bioengineered Tissue No -Bleeding Controlled with Pressure -Offloading No -Treatment Response Procedure Tolerated Well [See Physician Procedure note for Specifics] Pain Scale: 0-10 Numeric [Pain] -Is Patient Pain Free? Yes Musculoskeletal: No Muscle Wasting Neurological: Neuro grossly intact Psych/Mental Status: Normal Affect, Appropriate Debridement Note Post-Debridement Measurements/Treatment WC - Nurse 2 - General Ulcer CM Notes Start: 03/30/19 14:47 Freq: Status: Active Protocol: Activity Type Activity Date Activity User E-Sign Co-Sign Detail Recorded Client Recorded Date Recorded By Document 04/06/19 15:19 [id number] 04/06/19 15:20 04/06/19 15:19 Wound Center Nurse 2 #1 left [facility] LE -Time 15:20 -Correct Patient Yes -Correct Side, Site, Position Yes -Correct Procedure Yes -Procedure Performed Yes -Type of Procedure Debridement -Clinical Debridement Subcutaneous -Post Debridement Size (cm) - Length 2.3 -Post Debridement Size (cm) - Width 3.0 -Post Debridement Size (cm) - Depth 0.1 -Total Square Cm 6.90 -Wound/Ulcer Outcome Not Healed -Ulcer Cleansing Rinsed/ Irrigated with Saline -Foul Odor after Cleansing No -Bioengineered Tissue No -Bleeding Controlled with Pressure -Offloading No -Treatment Response Procedure Tolerated Well Pain Scale: 0-10 Numeric Is Patient Pain Free? Yes Wound debrided: anterior lower leg Laterality: Left Type of Debridement: Excisional debridement Anesthesia Used: 5% Lidocaine Gel Depth: Down to and including healthy tissue, in the subcutaneous layer Percentage of wound debrided: 100 Instrument Used: 5mm curette Tissue Removed: subcutaneous tissue and slough Severity: Fat Layer Exposed Amount of bleeding with debridement: Mild Bleeding Controlled with: Pressure Patient tolerated procedure well Assessment/Plan Assessment: 1. Ulcer of left lower leg. 2. Edema. 3. Debility Plan: Patient was evaluated in the wound care center today and a subcutaneous debridement was performed. Patient sits in a wheelchair and hit her left leg several weeks ago and developed a big bruise. She states that it did bleed some. She had been applying hydrogen peroxide and neosporin to the opened area. She went to see her PCP who placed her on Keflex and Doxycycline which she completed. Her PCP also did a wound culture on 03/09/19 which grew Pseudomonas aeroginosa and Pasturella species. She will complete Levaquin tomorrow. Wound care: Alysa with double Tubigrip three times per week. She has home health to assist with wound care. She lives at home and her son and daughter in law live with her but her son has a bad back and no one assists her with her care. She had venous studies on 03/30/19 which showed the common femoral vein bilaterally in the right saphenous?femoral junction, were not visualized due to the patient's size. The right great saphenous vein is competent from the proximal thigh to the mid?calf, but incompetent in the right distal calf. The left great saphenous vein appears segmentally competent. The distal left great saphenous vein was not assessed due the presence of an ulcer. Patient declined the arterial studies. Encouraged increase in protein intake to help with wound healing. Encouraged elevation of legs several times per day. Follow up in one week. Code Visit [id number]: [id number] Corinne subq tissue 20 sq cm/<
[2019-04-19 10:50] VITALS: RESP 20; TEMP 36.2; BMI 51.1
--- NOTE | 2019-04-19 15:50 | PCM.WC.PN ---
(1) Ulcer of left lower leg Status: Chronic Code(s): L97.929 - Non-pressure chronic ulcer of unspecified part of left lower leg with unspecified severity (2) Edema Status: Chronic Code(s): R60.9 - Edema, unspecified (3) Lymphedema Status: Chronic Code(s): I89.0 - Lymphedema, not elsewhere classified (4) Debility Status: Chronic Code(s): R53.81 - Other malaise Type of Wound Date of Service: 04/19/19 Chief Complaint: Opened area on left lower leg that will not heal. History of Wound: Patient sits in her hover round. She is able to stand to transfer. She hit her left leg several weeks ago and developed a big bruise. She has been doing hydrogen peroxide and neosporin to the opened area. She went to see her PCP who placed her on Keflex and Doxycycline which she just finished today. Her PCP also did a wound culture on 03/09/19 which grew Pseudomonas aeroginosa and Pasturella species. She completes the Levaquin tomorrow. Wound care: Alysa with double Tubigrip with dressing changes three times per week to let lateral leg. Collagen hydrogel with adaptic to left lateral leg skin tear and right lower leg skin tear. She has home health to assist with wound care. She lives at home and her son and daughter in law live with her but her son has a bad back and no one assists her with her care. On 03/30/2019 she had her venous studies which showed deep veins of the lower extremities are bilaterally patent and compressible segmentally. There is no evidence of deep vein thrombosis on either side. Valvular competence appears intact within the proximal deep venous systems bilaterally. The great saphenous veins appear bilaterally patent and compressible segmentally. The common femoral veins bilaterally and the right sapheno-femoral junction, were not visualized to the patient's pannus. The right great saphenous vein is competent from the proximal thigh to the mid?calf, but incompetent in the right distal calf. The left great saphenous vein appears segmentally Competent. The distal left great saphenous vein was not assessed due the presence of an ulcer. Small saphenous veins are patent and competent bilaterally. Patient declined the arterial studies due to they were uncomfortable for her. Today she denies fever and states she has a good appetite. Progress of Wound: Stable - Physical Exam Vital Signs Temp Pulse Resp BP 97.2 F L 88 20 H 151/62 H 04/19/19 10:50 03/28/19 01:19 04/19/19 10:50 03/28/19 01:19 General: Alert, Oriented x3, Cooperative HEENT: Atraumatic Oral: Moist Mucosa Lungs: Normal air movement Cardiovascular: Regular rate Abdomen: Obese Extremities: Capillary Refill Less than 3 Seconds, Diminished Peripheral Pulses, Edema Skin: Ulcer/ Wound - left lateral lower leg ulcer, left lateral leg skin tear and right anterior leg skin tear Wound Measurements and Assessment WC - Nurse 1 - General Ulcer Measurement Start: 03/30/19 14:47 Freq: Status: Active Protocol: Activity Type Activity Date Activity User E-Sign Co-Sign Detail Recorded Client Recorded Date Recorded By Document 04/19/19 10:50 DL [id number] 04/19/19 10:58 DL 04/19/19 10:50 Wound Center Nurse 1 [Ulcer Assessment] #1 left medial LE -Current Size (cm) - Length 0.8 -Current Size (cm) - Width 1.4 -Current Size (cm) - Depth 0.1 -Total Square Cm 1.12 -Photo Taken No -Exudate Amt Small -Exudate Type Serosanguineous -Wound Margin Indistinct, Non -Visible -Granulation Amt Medium (34-66%) -Granulation Quality Red -Necrosis Amt Medium (34-66%) -Necrotic Tissue Type Adherent Slough -Structure Exposed N/A -Texture (Kathryn-wound Skin Appearance) Scarring -Moisture (Kathryn-wound Skin Appearance Dry/Scaly ) -Color (Kathryn-wound Skin Appearance) Hemosiderin Staining -Temperature (Kathryn-wound Skin No Abnormality Appearance) (Pt Warm) -Tenderness on Palpation (Kathryn-wound No Skin Appearance) -Ulcer Cleansing Wound Cleanser -Foul Odor after Cleansing No -Anesthetic Used 4% Lidocaine Solution [Edema Assessment] -Left Calf (cm) 44 -Left Ankle (cm) 27 WC - Nurse 2 - General Ulcer CM Notes Start: 03/30/19 14:47 Freq: Status: Active Protocol: Activity Type Activity Date Activity User E-Sign Co-Sign Detail Recorded Client Recorded Date Recorded By Document 04/19/19 11:15 SHERRELL [id number] 04/19/19 11:21 04/19/19 11:15 Wound Center Nurse 2 [Procedure/Treatment] 2-left medial skin tear -Time 11:16 -Correct Patient Yes -Correct Side, Site, Position Yes -Correct Procedure Yes -Procedure Performed Yes -Type of Procedure Debridement -Clinical Debridement Selective -Post Debridement Size (cm) - Length 1.7 -Post Debridement Size (cm) - Width 2.0 -Post Debridement Size (cm) - Depth 0.1 -Total Square Cm 3.40 -Wound/Ulcer Outcome Not Healed -Ulcer Cleansing Rinsed/ Irrigated with Saline -Foul Odor after Cleansing No -Bioengineered Tissue No -Bleeding Controlled with Pressure -Offloading No -Treatment Response Procedure Tolerated Well #1 left medial LE -Time 11:17 -Correct Patient Yes -Correct Side, Site, Position Yes -Correct Procedure Yes -Procedure Performed Yes -Type of Procedure Debridement -Clinical Debridement Subcutaneous -Post Debridement Size (cm) - Length 1.0 -Post Debridement Size (cm) - Width 1.7 -Post Debridement Size (cm) - Depth 0.1 -Total Square Cm 1.70 -Wound/Ulcer Outcome Not Healed -Ulcer Cleansing Rinsed/ Irrigated with Saline -Foul Odor after Cleansing No -Bioengineered Tissue No -Bleeding Controlled with Pressure -Offloading No -Treatment Response Procedure Tolerated Well [See Physician Procedure note for Specifics] Pain Scale: 0-10 Numeric [Pain] -Is Patient Pain Free? Yes Musculoskeletal: No Muscle Wasting Neurological: Neuro grossly intact Psych/Mental Status: Normal Affect, Appropriate Debridement Note Post-Debridement Measurements/Treatment WC - Nurse 2 - General Ulcer CM Notes Start: 03/30/19 14:47 Freq: Status: Active Protocol: Activity Type Activity Date Activity User E-Sign Co-Sign Detail Recorded Client Recorded Date Recorded By Document 04/06/19 15:19 [id number] 04/06/19 15:20 Document 04/19/19 11:15 [id number] 04/19/19 11:21 04/06/19 04/19/19 15:19 11:15 Wound Center Nurse 2 2-left medial skin tear -Time 11:16 -Correct Patient Yes -Correct Side, Site, Position Yes -Correct Procedure Yes -Procedure Performed Yes -Type of Procedure Debridement -Clinical Debridement Selective -Post Debridement Size (cm) - Length 1.7 -Post Debridement Size (cm) - Width 2.0 -Post Debridement Size (cm) - Depth 0.1 -Total Square Cm 3.40 -Wound/Ulcer Outcome Not Healed -Ulcer Cleansing Rinsed/ Irrigated with Saline -Foul Odor after Cleansing No -Bioengineered Tissue No -Bleeding Controlled with Pressure -Offloading No -Treatment Response Procedure Tolerated Well #1 left medial LE -Time 15:20 11:17 -Correct Patient Yes Yes -Correct Side, Site, Position Yes Yes -Correct Procedure Yes Yes -Procedure Performed Yes Yes -Type of Procedure Debridement Debridement -Clinical Debridement Subcutaneous Subcutaneous -Post Debridement Size (cm) - Length 2.3 1.0 -Post Debridement Size (cm) - Width 3.0 1.7 -Post Debridement Size (cm) - Depth 0.1 0.1 -Total Square Cm 6.90 1.70 -Wound/Ulcer Outcome Not Healed Not Healed -Ulcer Cleansing Rinsed/ Rinsed/ Irrigated with Irrigated with Saline Saline -Foul Odor after Cleansing No No -Bioengineered Tissue No No -Bleeding Controlled with Pressure Pressure -Offloading No No -Treatment Response Procedure Procedure Tolerated Well Tolerated Well Pain Scale: 0-10 Numeric Is Patient Pain Free? Yes Yes Wound debrided: lateral leg skin tear Laterality: Left Type of Debridement: Excisional debridement Anesthesia Used: 5% Lidocaine Gel Depth: Down to and including healthy tissue, in the subcutaneous layer Percentage of wound debrided: 100 Instrument Used: 3mm curette Tissue Removed: subcutaneous tissue and slough Severity: Fat Layer Exposed Amount of bleeding with debridement: Mild Bleeding Controlled with: Compression and gauze Patient tolerated procedure well - Additional Wound Wound debrided: leg skin tear Laterality: Left Type of Debridement: Selective debridement Anesthesia Used: 5% Lidocaine Gel Depth: Down to and including healthy tissue Percentage of wound debrided: 100 Instrument Used: 3mm curette Tissue Removed: slough Severity: Limited To Skin Breakdown Amount of bleeding with debridement: Mild Bleeding Controlled with: Pressure Patient tolerated procedure: Patient tolerated procedure well Assessment/Plan Assessment: 1. Ulcer of left lower leg. 2. Edema. 3. Debility Plan: Patient was evaluated in the wound care center today and a subcutaneous debridement to left lateral leg and selective debridement to left leg skin tear was performed. Patient sits in a wheelchair and hit her left leg several weeks ago and developed a big bruise. She states that it did bleed some. She had been applying hydrogen peroxide and neosporin to the opened area. She went to see her PCP who placed her on Keflex and Doxycycline which she completed. Her PCP also did a wound culture on 03/09/19 which grew Pseudomonas aeroginosa and Pasturella species. She will complete Levaquin tomorrow. Wound care: Alysa to left lateral leg and collagen hydrogel to left leg skin tear and right lower leg skin tear with double Tubigrip three times per week. She has home health to assist with wound care. She lives at home and her son and daughter in law live with her but her son has a bad back and no one assists her with her care. She had venous studies on 03/30/19 which showed the common femoral vein bilaterally in the right saphenous?femoral junction, were not visualized due to the patient's size. The right great saphenous vein is competent from the proximal thigh to the mid?calf, but incompetent in the right distal calf. The left great saphenous vein appears segmentally competent. The distal left great saphenous vein was not assessed due the presence of an ulcer. Patient declined the arterial studies. Encouraged increase in protein intake to help with wound healing. Encouraged elevation of legs several times per day. Follow up in one week. Code Visit [id number] debridement to left leg skin tear [id number] to left lateral leg ulcer [id number]: [id number] Corinne subq tissue 20 sq cm/<
== END 2019-04-27 23:59 ==
LOC: WC 10:45
PROVIDERS: Family Provider Family Medicine Geriatric Medicine; PCP Family Medicine Geriatric Medicine; Visit Provider Nurse Practitioner Family
DX: L97.822 Non-pressure chronic ulcer of other part of left lower leg with fat layer exposed (principal); I89.0 Lymphedema, not elsewhere classified; R60.9 Edema, unspecified; S81.811A Laceration without foreign body, right lower leg, initial encounter; W22.8XXA Striking against or struck by other objects, initial encounter
CPT/HCPCS: 11042; 97597

== ENCOUNTER 2019-05-10 09:46 | Outpatient (RCR) | payer MEDICARE, OTHER, SELFPAY ==
[2019-04-28 00:55] VITALS: BP 151/62; PULSE 88; RESP 20; TEMP 36.2
[2019-05-10 13:17] VITALS: RESP 22; TEMP 36.4; BMI 51.1
--- NOTE | 2019-05-10 15:26 | PN.PCM_ITS ---
(1) Ulcer of right lower leg Status: Acute Current Visit: Yes Code(s): L97.919 - Non-pressure chronic ulcer of unspecified part of right lower leg with unspecified severity (2) Ulcer of left lower leg Status: Chronic Current Visit: Yes Code(s): L97.929 - Non-pressure chronic ulcer of unspecified part of left lower leg with unspecified severity (3) Edema Status: Chronic Current Visit: Yes Code(s): R60.9 - Edema, unspecified Type of Wound Date of Service: 05/10/19 Chief Complaint: Opened area on left lower leg that will not heal. History of Wound: Patient sits in her hover round. She is able to stand to transfer. She hit her left leg several weeks ago and developed a big bruise. She has been doing hydrogen peroxide and neosporin to the opened area. She went to see her PCP who placed her on Keflex and Doxycycline which she just finished today. Her PCP also did a wound culture on 03/09/19 which grew Pseudomonas aeroginosa and Pasturella species. She completed the Levaquin. Left leg ulcer is healed today. She bumped her right leg several weeks ago getting into her wheelchair and today has a large scab on the area. She states she has been putting neosporin on it. Wound care to right leg ulcer: Collagen hydrogel daily with double Tubigrip. She has home health to assist with wound care 3 times per week. Encouraged her to massage the left leg to help soften the scarring from the healed ulcer. She lives at home and her son and daughter in law live with her but her son has a bad back and no one assists her with her care. On 03/30/2019 she had her venous studies which showed deep veins of the lower extremities are bilaterally patent and compressible segmentally. There is no evidence of deep vein thrombosis on either side. Valvular competence appears intact within the proximal deep venous systems bilaterally. The great saphenous veins appear bilaterally patent and compressible segmentally. The common femoral veins bilaterally and the right sapheno-femoral junction, were not visualized to the patient's pannus. The right great saphenous vein is competent from the proximal thigh to the mid?calf, but incompetent in the right distal calf. The left great saphenous vein appears segmentally Competent. The distal left great saphenous vein was not assessed due the presence of an ulcer. Small saphenous veins are patent and competent bilaterally. Patient declined the art erial studies due to they were uncomfortable for her. Today she denies fever and states she has a good appetite. Progress of Wound: Left lower leg ulcer is healed. She a new ulcer on right lower leg that she obtained several weeks ago when she bumped it on her wheel chair. - Physical Exam Vital Signs Temp Pulse Resp BP 97.6 F L 88 22 H 151/62 H 05/10/19 13:17 04/28/19 00:55 05/10/19 13:17 04/28/19 00:55 General: Alert, Oriented x3, Cooperative HEENT: Atraumatic Oral: Moist Mucosa Lungs: Normal air movement Cardiovascular: Regular rate Abdomen: Obese Extremities: Capillary Refill Less than 3 Seconds, Diminished Peripheral Pulses, Edema Skin: Ulcer/ Wound - Left leg ulcer is healed today. She has an opened area on her right lower leg that has a large, dry scab on it. Once it was removed there is a small opening. Wound Measurements and Assessment WC - Nurse 1 - General Ulcer Measurement Start: 05/10/19 13:16 Freq: Status: Active Protocol: Activity Type Activity Date Activity User E-Sign Co-Sign Detail Recorded Client Recorded Date Recorded By Document 05/10/19 13:17 DL [id number] 05/10/19 13:27 DL 05/10/19 13:17 Wound Center Nurse 1 [Ulcer Assessment] 2-left medial skin tear -Current Size (cm) - Length 0 -Current Size (cm) - Width 0 -Current Size (cm) - Depth 0 -Total Square Cm 0 -Photo Taken Yes -Exudate Amt None Present -Wound Margin Flat & Intact -Granulation Amt Large (67-100%) -Granulation Quality [place] -Necrosis Amt None Present (0 %) -Structure Exposed N/A -Texture (Kathryn-wound Skin Appearance) Scarring -Moisture (Kathryn-wound Skin Appearance Dry/Scaly ) -Color (Kathryn-wound Skin Appearance) Rubor -Temperature (Kathryn-wound Skin No Abnormality Appearance) (Pt Warm) -Tenderness on Palpation (Kathryn-wound No Skin Appearance) -Ulcer Cleansing Rinsed/ Irrigated with Saline -Foul Odor after Cleansing No #1 left medial LE -Current Size (cm) - Length 0 -Current Size (cm) - Width 0 -Current Size (cm) - Depth 0 -Total Square Cm 0 -Photo Taken Yes -Exudate Amt None Present -Wound Margin Flat & Intact -Granulation Amt Large (67-100%) -Granulation Quality [place] -Necrosis Amt None Present (0 %) -Structure Exposed N/A -Texture (Kathryn-wound Skin Appearance) Scarring -Moisture (Kathryn-wound Skin Appearance Dry/Scaly ) -Color (Kathryn-wound Skin Appearance) Hemosiderin Staining,Rubor -Temperature (Kathryn-wound Skin No Abnormality Appearance) (Pt Warm) -Tenderness on Palpation (Kathryn-wound No Skin Appearance) -Ulcer Cleansing Rinsed/ Irrigated with Saline -Foul Odor after Cleansing No [Edema Assessment] -Point of Measurement (cm from the 42.5 distal point) -Point of measurement (cm from the 27 medial instep) WC - Nurse 2 - General Ulcer CM Notes Start: 05/10/19 13:16 Freq: Status: Active Protocol: Activity Type Activity Date Activity User E-Sign Co-Sign Detail Recorded Client Recorded Date Recorded By Document 05/10/19 14:02 [id number] 05/10/19 14:03 SHERRELL 05/10/19 14:02 Wound Center Nurse 2 [Procedure/Treatment] 3-right medial leg -Time 14:03 -Correct Patient Yes -Correct Side, Site, Position Yes -Correct Procedure Yes -Procedure Performed Yes -Type of Procedure Debridement -Clinical Debridement Subcutaneous -Post Debridement Size (cm) - Length 0.2 -Post Debridement Size (cm) - Width 1.6 -Post Debridement Size (cm) - Depth 0.2 -Total Square Cm 0.32 -Wound/Ulcer Outcome Not Healed -Ulcer Cleansing Rinsed/ Irrigated with Saline -Foul Odor after Cleansing No -Bioengineered Tissue No -Bleeding Controlled with Pressure -Offloading No -Treatment Response Procedure Tolerated Well 2-left medial skin tear -Time 14:02 -Correct Patient No -Correct Side, Site, Position No -Correct Procedure No -Procedure Performed No -Post Debridement Size (cm) - Length 0 -Post Debridement Size (cm) - Width 0 -Post Debridement Size (cm) - Depth 0 -Total Square Cm 0 -Wound/Ulcer Outcome Healed- Epithelialized -Ulcer Cleansing Rinsed/ Irrigated with Saline -Foul Odor after Cleansing No -Bioengineered Tissue No -Bleeding Controlled with Pressure -Offloading No #1 left medial LE -Correct Patient No -Correct Side, Site, Position No -Correct Procedure No -Procedure Performed No -Post Debridement Size (cm) - Length 0 -Post Debridement Size (cm) - Width 0 -Post Debridement Size (cm) - Depth 0 -Total Square Cm 0 -Wound/Ulcer Outcome Healed- Epithelialized [See Physician Procedure note for Specifics] Pain Scale: 0-10 Numeric [Pain] -Is Patient Pain Free? Yes Musculoskeletal: No Muscle Wasting Neurological: Neuro grossly intact Psych/Mental Status: Normal Affect, Appropriate Debridement Note Post-Debridement Measurements/Treatment WC - Nurse 2 - General Ulcer CM Notes Start: 05/10/19 13:16 Freq: Status: Active Protocol: Activity Type Activity Date Activity User E-Sign Co-Sign Detail Recorded Client Recorded Date Recorded By Document 05/10/19 14:02 SHERRELL [id number] 05/10/19 14:03 SHERRELL 05/10/19 14:02 Wound Center Nurse 2 3-right medial leg -Time 14:03 -Correct Patient Yes -Correct Side, Site, Position Yes -Correct Procedure Yes -Procedure Performed Yes -Type of Procedure Debridement -Clinical Debridement Subcutaneous -Post Debridement Size (cm) - Length 0.2 -Post Debridement Size (cm) - Width 1.6 -Post Debridement Size (cm) - Depth 0.2 -Total Square Cm 0.32 -Wound/Ulcer Outcome Not Healed -Ulcer Cleansing Rinsed/ Irrigated with Saline -Foul Odor after Cleansing No -Bioengineered Tissue No -Bleeding Controlled with Pressure -Offloading No -Treatment Response Procedure Tolerated Well 2-left medial skin tear -Time 14:02 -Correct Patient No -Correct Side, Site, Position No -Correct Procedure No -Procedure Performed No -Post Debridement Size (cm) - Length 0 -Post Debridement Size (cm) - Width 0 -Post Debridement Size (cm) - Depth 0 -Total Square Cm 0 -Wound/Ulcer Outcome Healed- Epithelialized -Ulcer Cleansing Rinsed/ Irrigated with Saline -Foul Odor after Cleansing No -Bioengineered Tissue No -Bleeding Controlled with Pressure -Offloading No #1 left medial LE -Correct Patient No -Correct Side, Site, Position No -Correct Procedure No -Procedure Performed No -Post Debridement Size (cm) - Length 0 -Post Debridement Size (cm) - Width 0 -Post Debridement Size (cm) - Depth 0 -Total Square Cm 0 -Wound/Ulcer Outcome Healed- Epithelialized Pain Scale: 0-10 Numeric Is Patient Pain Free? Yes Wound debrided: leg ulcer Laterality: Right Type of Debridement: Excisional debridement Anesthesia Used: 5% Lidocaine Gel Depth: Down to and including healthy tissue, in the subcutaneous layer Percentage of wound debrided: 100 Instrument Used: 3mm curette Tissue Removed: Subcutaneous tissue and slough Severity: Limited To Skin Breakdown Amount of bleeding with debridement: Mild Bleeding Controlled with: Pressure Patient tolerated procedure well Assessment/Plan Active Problems Ulcer of left lower leg (Chronic) Edema (Chronic) Ulcer of right lower leg (Acute) Assessment: 1. Ulcer of left lower leg. 2. Edema. 3. Debility Plan: Patient was evaluated in the wound care center today and a subcutaneous debridement to right lateral leg was performed. She was originally seen for the ulcers on her left leg. She obtained a new ulcer several weeks ago to her right leg when she bumped it on her wheelchair. She states she had been putting neosporin on it. Wound care: Collagen hydrogel to right leg lower leg and double Tubigrip for compression daily. She has home health to assist with wound care. She lives at home and her son and daughter in law live with her but her son has a bad back and no one assists her with her care. She had venous studies on 03/30/19 which showed the common femoral vein bilaterally in the right saphenous?femoral junction, were not visualized due to the patient's size. The right great saphenous vein is competent from the proximal thigh to the mid?calf, but incompetent in the right distal calf. The left great saphenous vein appears segmentally competent. The distal left great saphenous vein was not assessed due the presence of an ulcer. Patient declined the arterial studies. Encouraged increase in protein intake to help with wound healing. Encouraged elevation of legs several times per day. Follow up in one week with [facility]. Code Visit 111xxx-113xx: [id number] Corinne subq tissue 20 sq cm/<
== END 2019-05-28 23:59 ==
LOC: WC 09:46
PROVIDERS: Family Provider Family Medicine Geriatric Medicine; PCP Family Medicine Geriatric Medicine; Visit Provider Nurse Practitioner Family
DX: L97.821 Non-pressure chronic ulcer of other part of left lower leg limited to breakdown of skin (principal); I89.0 Lymphedema, not elsewhere classified; R60.9 Edema, unspecified
CPT/HCPCS: 11042

== ENCOUNTER → 2020-08-23 14:39 | Outpatient (CLI) | payer MEDICARE, OTHER, SELFPAY ==
[2020-08-23 16:40] LABS: Absolute Lymphocyte Count 1.32 X10^3/uL (0.83-4.51); Absolute Neutrophil Count 4.3 X10^3/uL (2.0-7.7); Basophil# 0.04 X10^3/uL; Basophil% 0.6 % (0-1); Eosinophil# 0.38 X10^3/uL; Eosinophils% 5.7 % (0-5); Hematocrit 40.9 % (37-47); Lymphocyte # 1.32 X10^3/ul (0.83-4.51); Lymphocyte % 19.9 % (19-41); Mean Corp Hgb Conc 31.8 g/dL (32-36); Mean Corpuscular Volume 94.5 fL (81-99); Mean Platelet Vol. 10.2 fl (6.2-12.0); Monocyte# 0.57 X10^3/uL; Monocyte% 8.6 % (0-10); NRBC Flagged by Analyzer 0 % (0-5); Neutrophil # 4.31 X10^3/uL (2.7-7.7); Platelet Count 139 K/mm3 (150-450); RBC Distribution Width CV 12.5 % (11.6-14.6); RBC Distribution Width SD 43.4 fl (35.1-43.9); Red Blood Count 4.33 M/mm3 (4.2-5.4); White Blood Count 6.6 K/mm3 (4.4-11.0)
[2020-08-23 16:54] LABS: ALB/GLOB Ratio 0.9 RATIO (0.9-2.4); AST(SGOT) 9 U/L (15-37); Alanine Aminotransfer ALT/SGPT 12 U/L (13-56); Albumin, Serum 2.9 g/dL (3.2-5.0); Alkaline Phosphatase 78 U/L (45-117); Anion Gap 1 (5-15); BUN 17 mg/dL (7-18); BUN/Creat Ratio 14.8 RATIO (10-20); Calcium,Total 9.4 mg/dL (8.5-10.1); Chloride 105 mmol/L (98-107); Creatinine, Serum 1.15 mg/dL (0.55-1.02); EST Glomerular Filtration Rate 48 mL/min (>60); Est Glom Filt Rate - Afr Amer 58 mL/min (>60); Globulin 3.4 g/dL (2.2-4.2); Glucose 101 mg/dL (74-106); Potassium 4.1 mmol/L (3.5-5.1); Protein, Total 6.3 g/dL (6.4-8.2); Sodium Level 141 mmol/L (136-145); Thyroid Stim Hormone (TSH) 5.52 uIU/mL (0.358-3.74)
== END ==
PROVIDERS: PCP Family Medicine Geriatric Medicine; Visit Provider Family Medicine Geriatric Medicine
DX: I10 Essential (primary) hypertension (principal); E55.9 Vitamin D deficiency, unspecified
CPT/HCPCS: 36415; 80053; 82306; 84443; 85025

== ENCOUNTER → 2020-10-04 16:35 | Outpatient (CLI) | payer MEDICARE, OTHER, SELFPAY ==
[2020-10-04 19:47] LABS: M R Staph aureus DNA By PCR Negative (Negative); Probe Check PASS; Staph aureus DNA By PCR POSITIVE (Negative)
== END ==
PROVIDERS: PCP Family Medicine Geriatric Medicine; Visit Provider Family Medicine Geriatric Medicine
DX: S81.809A Unspecified open wound, unspecified lower leg, initial encounter (principal); B95.62 Methicillin resistant Staphylococcus aureus infection as the cause of diseases classified elsewhere
CPT/HCPCS: 87070; 87205; 87640

== ENCOUNTER → 2021-02-19 15:47 | Outpatient (CLI) | payer MEDICARE, OTHER, SELFPAY ==
[2021-02-19 16:30] LABS: Absolute Lymphocyte Count 1.26 X10^3/uL (0.83-4.51); Absolute Neutrophil Count 6.1 X10^3/uL (2.0-7.7); Basophil# 0.06 X10^3/uL; Basophil% 0.7 % (0-1); Eosinophil# 0.38 X10^3/uL; Eosinophils% 4.3 % (0-5); Hematocrit 37.9 % (37-47); Lymphocyte # 1.26 X10^3/ul (0.83-4.51); Lymphocyte % 14.3 % (19-41); Mean Corp Hgb Conc 31.7 g/dL (32-36); Mean Corpuscular Hgb 30.8 pg (27.0-32.0); Mean Corpuscular Volume 97.4 fL (81-99); Mean Platelet Vol. 11.2 fl (6.2-12.0); Monocyte# 0.97 X10^3/uL; NRBC Flagged by Analyzer 0 % (0-5); Neutrophil # 6.13 X10^3/uL (2.7-7.7); Neutrophil % 69.2 % (47-70); Platelet Count 124 K/mm3 (150-450); RBC Distribution Width SD 43.3 fl (35.1-43.9); Red Blood Count 3.89 M/mm3 (4.2-5.4); White Blood Count 8.8 K/mm3 (4.4-11.0)
[2021-02-19 17:25] LABS: ALB/GLOB Ratio 0.8 RATIO (0.9-2.4); AST(SGOT) 10 U/L (15-37); Alanine Aminotransfer ALT/SGPT 12 U/L (13-56); Albumin, Serum 2.7 g/dL (3.2-5.0); Alkaline Phosphatase 95 U/L (45-117); Anion Gap 5 (5-15); BUN 42 mg/dL (7-18); BUN/Creat Ratio 23.9 RATIO (10-20); Chloride 103 mmol/L (98-107); Creatinine, Serum 1.76 mg/dL (0.55-1.02); EST Glomerular Filtration Rate 29 mL/min (>60); Est Glom Filt Rate - Afr Amer 35 mL/min (>60); Globulin 3.5 g/dL (2.2-4.2); Glucose 100 mg/dL (74-106); Potassium 4.4 mmol/L (3.5-5.1); Protein, Total 6.2 g/dL (6.4-8.2); Sodium Level 141 mmol/L (136-145); Thyroid Stim Hormone (TSH) 0.62 uIU/mL (0.358-3.74)
== END ==
PROVIDERS: PCP Family Medicine Geriatric Medicine; Visit Provider Family Medicine Geriatric Medicine
DX: I10 Essential (primary) hypertension (principal); E55.9 Vitamin D deficiency, unspecified
CPT/HCPCS: 36415; 80053; 82306; 84443; 85025

== ENCOUNTER 2021-05-05 15:57 | Inpatient (IN) | payer MEDICARE, OTHER, SELFPAY ==
[2021-05-05 15:58] VITALS: BP 135/109; PULSE 65; RESP 14; TEMP 35.8; O2SAT 91; BMI 45.7
--- NOTE | 2021-05-05 16:32 | EKG12_ITS ---
Test Reason : Blood Pressure : / mmHG Vent. Rate : 071 BPM Atrial Rate : 071 BPM P-R Int : 214 ms QRS Dur : 104 ms QT Int : 398 ms P-R-T Axes : 093 001 049 degrees QTc Int : 432 ms Sinus rhythm with sinus arrhythmia with 1st degree A-V block Low voltage QRS (limb leads) Confirmed by IVANA PEOPLES, REJI ([id number]), editor index HORACIO MENDOZA ([id number]) on 05/08/2021 12:50:10 PM Referred By: JA Confirmed By:REJI HEATH MD
--- NOTE | 2021-05-05 16:35 | ED.VIS.LOWEX ---
HPI History of Present Illness Chief Complaint: Edema Informant: patient and family Onset/Context/Timing Onset: Days Context: Gradual Onset Timing: Continuous Current Severity: Mild Maximum Severity: Mild Narrative Narrative: 85-year-old female who is wheelchair-bound and lives at home with her son and [id number]. She has a history of hypertension, hypothyroidism, prior DVT not on blood thinners and rheumatoid arthritis. States she has had bilateral lower extremity swelling last several days with redness and discomfort. States this is been going on about a week. Much worse than normal. No history of CHF. States she has been urinating. Mild shortness of breath typically not on home O2. She denies any chest pain or fever. Prior similar symptoms: No Recent Illness/Hospitalization: No PFSH PFS Medical History (Updated 05/05/21 @ 19:[address] Jose Crowley MD) Fibromyalgia GERD (gastroesophageal reflux disease) Hyperlipidemia Hypertension Hypothyroidism Lymphedema Obesity Home Medications baclofen 10 mg PO QHS 04/29/17 [History Last Taken Unknown] folic acid 1 mg PO DAILY@0800 04/29/17 [History Last Taken Unknown] levothyroxine 75 mcg PO DAILY 04/29/17 [History Last Taken Unknown] nebivolol [Bystolic] 5 mg PO DAILY 04/29/17 [History Last Taken Unknown] albuterol sulfate 2 puff INHALATION Q4H PRN PRN 03/16/19 [History Last Taken Unknown] esomeprazole magnesium 40 mg PO DAILY 03/16/19 [History Last Taken Unknown] multivitamin with minerals 1 ea PO DAILY 03/16/19 [History Last Taken Unknown] valsartan-hydrochlorothiazide 1 ea PO DAILY 03/16/19 [History Last Taken Unknown] vortioxetine 10 mg PO DAILY 03/16/19 [History Last Taken Unknown] Allergy/AdvReac Type Severity Reaction Status Date / Time lisinopril Allergy Unknown Verified 05/05/21 15:58 Penicillins Allergy Unknown Verified 05/05/21 15:58 Social History Smoking Status: Never smoker ROS ROS ED ROS Narrative Shortness of breath. Leg swelling bilaterally. Chronic diarrhea. Review of Systems ROS Unobtainable: Denies due to encephalopathy Constitutional Constitutional ED: Denies chills or fever(s) Eyes Eyes: Denies change in vision ENT ENT ED: Denies ear pain or sore throat Cardiovascular Cardiovascular: Denies chest pain, palpitations or racing heartbeat Respiratory/Chest Respiratory/Chest: Reports dyspnea; Denies cough or sputum Gastrointestinal Gastrointestinal: Reports diarrhea; Denies abdominal pain, nausea or vomiting Genitourinary Genitourinary ED: Denies dysuria Musculoskeletal Musculoskeletal: Denies myalgias Integumentary Denies rash Neurologic Neurologic: Denies headache(s) Psychiatric Psychiatric: Denies depression Endocrine Endocrinology: Denies polyuria Hematologic/Lymphatic Hematologic/Lymphatic: Denies easy bruising Allergic/Immunologic Allergic/Immunologic ED: Denies urticaria EXAM Physical Exam Narrative Exam Narrative: 85-year female no acute distress vital signs stable afebrile. O2 sats 91%. No hypoxia. H EENT exam unremarkable. Neck nontender. Lungs clear to auscultation. Heart regular rhythm rate about 65 3/6 stock ejection murmur. Abdomen morbidly obese but soft nontender normal bowel sounds no peritoneal signs. Moving all 4 extremities. 1+ pitting edema both lower extremities with cellulitis in both lower extremities. Redness and warmth. Mildly tender. Calves are nontender. Neurologically she is awake and alert with no focal motor deficits. Const Vital Signs: 05/05/21 15:58 05/05/21 16:18 05/05/21 18:08 Temperature 96.4 F L Temperature Source Temporal Pulse Rate 65 90 Respiratory Rate 14 16 Respiratory Effort Normal Respiratory Pattern Normal Blood Pressure 135/109 H 112/78 Blood Pressure Mean 117 89 Pulse Ox 91 97 Oxygen Delivery Method Room Air Room Air Positive well nourished, well developed and obese; Negative for cachectic, contractures or unkempt General Appearance ED: well developed and NAD; Negative for unkempt, cachectic or contractures Nutritional Appearance: obese; Negative for cachectic HEENT Reports moist mucous membranes normocephalic and atraumatic; Negative for trauma or tenderness Eyes PERRL Neck full ROM and supple Thyroid: Negative for tender Chest Wall inspection of chest normal and palpation of chest normal Resp normal respiratory effort, no retractions and clear to auscultation bilaterally Auscultation: Negative for rales, rhonchi or wheezes Cardio regular rate, regular rhythm, S1 normal heart sound, S2 normal heart sound and no murmurs GI non-tender, non-distended and no masses Inspection: Negative for abdominal distention Auscultation: normoactive bowel sounds Palpation: soft; Negative for tender, guarding or rebound tenderness present Back/Spine no CVA tenderness General Back: Negative for CVA tenderness Cervical Spine: Negative for cervical spine tenderness Thoracic Spine / Upper Back: Negative for thoracic spinal tenderness Lumbar Spine / Lower Back: Negative for lumbar spinal tenderness Extremity Negative for normal to inspection Extremity Narrative: Bilateral lower extremity edema. Redness and warmth bilaterally consistent with most likely cellulitis. General Extremety ED: Yes edema; Negative for cyanosis General Extremity: edema; Negative for cyanosis Neuro oriented x3 and moves all extremities Sensorium / Orientation: alert, oriented to person, oriented to place and oriented to time; Negative for orientation impaired, confused, lethargic or stuporous Motor Exam: strength 5/5 throughout Psych mental status grossly normal Appearance: Negative for unkempt Mood & Affect: Negative for anxious Skin no wounds Skin Narrative: Bilateral lower extremity redness with edema. Rashes: No no rashes MDM MDM MDM Narrative Medical decision making narrative: 85-year-old with bilateral lower extremity swelling and redness. Differential would include cellulitis clinically I do not think this is a DVT symptoms bilateral. This could also be secondary to congestive heart failure. Cardiac work-up will be undertaken. Repeat exam unchanged. Patient's labs really do not look significantly different than her baseline. My concern is the extent of the cellulitis on both lower extremities, her age and comorbidities. I discussed with her son. Started on IV clindamycin and speak to the hospitalist about admission. Lab Data Attestation: I reviewed the patient's lab results. Lab results narrative: CBC shows a white count of 4. Hemoglobin 12.3. Platelets 148,000. Electrolytes show potassium of 5.3 a gap of 4 a BUN of 40 and a creatinine 1.42. Glucose 100. Troponins 11. BNP is 177. Chest x-ray unremarkable. History of prior renal insufficiency. Labs: Laboratory Results - last 24 hr 05/05/21 05/05/21 05/05/21 16:45 16:45 16:45 WBC 4.9 RBC 4.03 L Hgb 12.3 Hct 39.9 MCV 99.0 MCH 30.5 MCHC 30.8 L RDW Std Deviation 45.8 H RDW Coeff of Daisy 12.7 Plt Count 148 L MPV 10.3 Immature Gran % (Auto) 0.400 Neut % (Auto) 61.8 Lymph % (Auto) 13.2 L [place] % (Auto) 11.9 H Eos % (Auto) 11.9 H Baso % (Auto) 0.8 Absolute Neuts (auto) 3.1 Absolute Lymphs (auto) 0.65 L Nucleated RBC % 0 Sodium 141 Potassium 5.3 H Chloride 105 Carbon Dioxide 32.0 Anion Gap 4 L BUN 40 H Creatinine 1.42 H Estim Creat Clear Calc 27.01 Est GFR (MDRD) Af Amer 45 L Est GFR (MDRD) Non-Af 38 L BUN/Creatinine Ratio 28.2 H Glucose 100 Calcium 9.4 Troponin I High Sens 11 B-Natriuretic Peptide 177.2 H Radiography Diagnostic Testing: Clinical Impression(s) from Imaging Studies Chest X-Ray 05/05/21 16:57 IMPRESSION: Normal x-ray examination of the chest. Electronically Signed: Kris Orta MD at 17:46 EST Tel , Service support , Chest x-ray, portable, 1 view shows no acute abnormality. Radiologist agrees. Discharge Plan Triage Chief Complaint: Edema ED Provider: Jose Crowley Dx/Rx/DC Orders Clinical Impression: Bilateral cellulitis of lower leg, Rheumatoid arthritis, Hypertension, Obesity Prescriptions: No Action levothyroxine 75 MCG tablet 75 mcg PO DAILY RF: 0 baclofen 10 MG tablet 10 mg PO QHS RF: 0 folic acid 1 MG tablet 1 mg PO DAILY@0800 RF: 0 nebivolol [Bystolic] 5 MG tablet 5 mg PO DAILY RF: 0 esomeprazole magnesium 40 MG capsule 40 mg PO DAILY RF: 0 multivitamin with minerals 1 EACH tablet 1 ea PO DAILY RF: 0 albuterol sulfate 1 INHALER inhaler 2 puff inhalation Q4H PRN PRN (Reason: Wheezing) RF: 0 valsartan-hydrochlorothiazide 1 EACH tablet 1 ea PO DAILY RF: 0 vortioxetine 10 MG tablet 10 mg PO DAILY RF: 0 Primary Care Provider: Fernando Velazquez Chi Referrals: Fernando Velazquez Chi, MD [Primary Care Provider] - Disposition Disposition: Acute Care Hospital [facility]
[2021-05-05 16:54] LABS: Absolute Lymphocyte Count 0.65 X10^3/uL (0.83-4.51); Absolute Neutrophil Count 3.1 X10^3/uL (2.0-7.7); Basophil# 0.04 X10^3/uL; Basophil% 0.8 % (0-1); Eosinophil# 0.59 X10^3/uL; Eosinophils% 11.9 % (0-5); Hematocrit 39.9 % (37-47); Hemoglobin 12.3 g/dL (12.0-15.0); Lymphocyte # 0.65 X10^3/ul (0.83-4.51); Lymphocyte % 13.2 % (19-41); Mean Corp Hgb Conc 30.8 g/dL (32-36); Mean Corpuscular Hgb 30.5 pg (27.0-32.0); Mean Platelet Vol. 10.3 fl (6.2-12.0); Monocyte# 0.59 X10^3/uL; Monocyte% 11.9 % (0-10); NRBC Flagged by Analyzer 0 % (0-5); Neutrophil # 3.05 X10^3/uL (2.7-7.7); Neutrophil % 61.8 % (47-70); Platelet Count 148 K/mm3 (150-450); RBC Distribution Width CV 12.7 % (11.6-14.6); RBC Distribution Width SD 45.8 fl (35.1-43.9); Red Blood Count 4.03 M/mm3 (4.2-5.4); White Blood Count 4.9 K/mm3 (4.4-11.0)
--- NOTE | 2021-05-05 16:57 | RAD_ITS ---
STUDY: X-RAY CHEST REASON FOR EXAM: Female, 85 years old. Chest pain TECHNIQUE: Single frontal view of the chest. COMPARISON: 12/02/2016. FINDINGS: The lungs are clear and expanded. There is no demonstrated pleural abnormality. Normal size heart. Normal mediastinum and to. Normal visualized pulmonary arteries. Normal visualized aortic arch and descending thoracic aorta. Normal visualized thoracic spine. Normal visualized ribs, clavicles, and shoulders. There is no demonstrated abnormality of the visualized soft tissue structures of the upper abdomen. RAD/Chest 1 View (Portable) IMPRESSION: Normal x-ray examination of the chest. Electronically Signed: Kris Orta MD at 17:46 EST Tel , Service support ,
[2021-05-05 17:15] LABS: Anion Gap 4 (5-15); BUN 40 mg/dL (7-18); BUN/Creat Ratio 28.2 RATIO (10-20); Calcium,Total 9.4 mg/dL (8.5-10.1); Chloride 105 mmol/L (98-107); Creatinine, Serum 1.42 mg/dL (0.55-1.02); EST Glomerular Filtration Rate 38 mL/min (>60); Est Glom Filt Rate - Afr Amer 45 mL/min (>60); Estimated Creatinine Clearance 27.01 ml/min; Glucose 100 mg/dL (74-106); Potassium 5.3 mmol/L (3.5-5.1); Sodium Level 141 mmol/L (136-145); Troponin-I HS 11 pg/mL (3.0-54.0)
[2021-05-05 17:17] LABS: BNP,B-Type NATRIURETIC PEPTIDE 177.2 pg/mL (0-100)
[2021-05-05 18:08] VITALS: BP 112/78; PULSE 90; RESP 16; O2SAT 97
--- NOTE | 2021-05-05 19:11 | PCM.HP.STD ---
HPI - General HPI Narrative LUIS A PINA, is a 85 F with a significant history of hypertension, obesity lymphedema and hypothyroidism who presents to the emergency department with bilateral erythema of bilateral legs noticed by family on the same day of presentation. Associated with her symptoms is lethargy; weakness; and fall. Patient is a wheel-chair bound. She usually turns around and sits in the recliner. She fell into her wheel chair. She typically lies in the recliner. She has had swelling in her bilateral legs. [facility] Medical History Fibromyalgia GERD (gastroesophageal reflux disease) Hyperlipidemia Hypertension Hypothyroidism Lymphedema Obesity Home Medications baclofen 10 mg PO QHS 04/29/17 [History Last Taken Unknown] folic acid 1 mg PO DAILY@0800 04/29/17 [History Last Taken Unknown] levothyroxine 75 mcg PO DAILY 04/29/17 [History Last Taken Unknown] nebivolol [Bystolic] 5 mg PO DAILY 04/29/17 [History Last Taken Unknown] albuterol sulfate 2 puff INHALATION Q4H PRN PRN 03/16/19 [History Last Taken Unknown] esomeprazole magnesium 40 mg PO DAILY 03/16/19 [History Last Taken Unknown] multivitamin with minerals 1 ea PO DAILY 03/16/19 [History Last Taken Unknown] valsartan-hydrochlorothiazide 1 ea PO DAILY 03/16/19 [History Last Taken Unknown] vortioxetine 10 mg PO DAILY 03/16/19 [History Last Taken Unknown] Allergy/AdvReac Type Severity Reaction Status Date / Time lisinopril Allergy Unknown Verified 05/05/21 15:58 Penicillins Allergy Unknown Verified 05/05/21 15:58 Family History Other Cancer Surgical History H/O: hysterectomy History of appendectomy Hx of cholecystectomy Social History Smoking Status: Never smoker ROS ROS Narrative Constitutional: Reports fatigue. Denies fever, chills, anorexia and change in weight Eyes: Denies blurry vision, change in eye color, change in vision, discharge from eye(s), double vision, erythema, eye pain, loss of vision or other HEENT: Denies abnormal hearing, dysphagia, ear pain, epistaxis, headache(s), hearing loss, nasal congestion, nasal discharge, post nasal drip, sinus pressure, sore throat or other Cardiovascular: Denies chest pain or palpitations. Denies dyspnea on exertion, orthopnea and paroxysmal nocturnal dyspnea Respiratory/Chest: Denies cough, excessive phlegm production, shortness of breath with exertion and wheezing Gastrointestinal: Reports bloating of the abdomen. Denies abdominal pain, coffee ground emesis, constipation, diarrhea, dyspepsia, hematemesis, hematochezia, loose stools, melena, nausea, vomiting or other Genitourinary: Reports burning urination. Denies hematuria, nocturia, urinary frequency, urinary hesitancy, urinary incontinence. Musculoskeletal: Patient is wheelchair-bound. Neurologic: Denies abnormal gait, abnormal speech, confusion, disequilibrium, dizziness, focal weakness, headache(s), numbness, paresthesias, seizure-like activity, seizures, syncope, tingling, tremor(s) or other Psychiatric: Denies anxiety, depression, homicidal ideation, suicidal ideation or other Endocrinology: Denies change in body appearance, cold intolerance, excessive sweating, heat intolerance, polydipsia, polyuria or other Hematologic/Lymphatic: Denies anemia, easy bleeding, easy bruising, lymphadenopathy or other Integumentary: Denies rashes Allergic/Immunologic: Denies rhinitis, hives, eczema, asthma or other Vital Signs Vital Signs Vital Signs: 05/05/21 15:58 05/05/21 16:18 05/05/21 18:08 Temperature 96.4 F L Temperature Source Temporal Pulse Rate 65 90 Respiratory Rate 14 16 Respiratory Effort Normal Respiratory Pattern Normal Blood Pressure 135/109 H 112/78 Blood Pressure Mean 117 89 Pulse Ox 91 97 Oxygen Delivery Method Room Air Room Air Weight Weight: 124.738 kg Body Mass Index (BMI) 45.7 Physical Exam Narrative Physical exam: General: Well-nourished, well-developed. Head: Normocephalic, atraumatic, no tenderness Eyes: PERRLA, EOMI ENT, no trauma, moist mucous membranes, no rhinorrhea Neck: Nontender, full range of motion, no spinal tenderness, deformities, step-off CVS: Regular rate and rhythm. S1-S2 present. Murmur present. No gallop or rub. Respiratory : clear to auscultation bilaterally, chest wall nontender, no wheezing Abdomen: Soft, nontender, nondistended, normal bowel sounds, no masses : Deferred Back: Nontender, no CVA tenderness, no midline spinal tenderness, deformities, step-offs Extremities: Bilateral lower legs and bilateral feet swelling, erythema and mild tenderness. Mild increase in warmth in bilateral lower legs. Skin: Normal color, no trauma, abrasions Neuro: Alert, oriented, cranial nerves II through XII grossly intact. Psychiatry: Normal mood. Normal affect. Not depressed. Not anxious. Results Lab / Micro Data Result Diagrams: 05/05/21 16:45 05/05/21 16:45 Labs: Laboratory Results - last 24 hr 05/05/21 16:45: WBC 4.9, RBC 4.03 L, Hgb 12.3, Hct 39.9, MCV 99.0, MCH 30.5, MCHC 30.8 L, RDW Std Deviation 45.8 H, RDW Coeff of Daisy 12.7, Plt Count 148 L, MPV 10.3, Immature Gran % (Auto) 0.400, Neut % (Auto) 61.8, Lymph % (Auto) 13.2 L, [place] % (Auto) 11.9 H, Eos % (Auto) 11.9 H, Baso % (Auto) 0.8, Absolute Neuts (auto) 3.1, Absolute Lymphs (auto) 0.65 L, Nucleated RBC % 0 05/05/21 16:45: Sodium 141, Potassium 5.3 H, Chloride 105, Carbon Dioxide 32.0, Anion Gap 4 L, BUN 40 H, Creatinine 1.42 H, Estim Creat Clear Calc 27.01, Est GFR (MDRD) Af Amer 45 L, Est GFR (MDRD) Non-Af 38 L, BUN/Creatinine Ratio 28.2 H, Glucose 100, Calcium 9.4, Troponin I High Sens 11 05/05/21 16:45: B-Natriuretic Peptide 177.2 H Radiology Impression Chest X-Ray 05/05/21 16:57 IMPRESSION: Normal x-ray examination of the chest. Electronically Signed: Kris Orta MD at 17:46 EST Tel , Service support , Assessment & Plan Assessment/Plan (1) Venous stasis dermatitis of both lower extremities: (2) Lethargy: (3) Weakness: (4) Fall: QUALIFIERS: Encounter type: initial encounter Qualified Code(s): W19.XXXA - Unspecified fall, initial encounter (5) Abdominal bloating: (6) Debility: (7) Dysuria: PLAN: Venous stasis dermatitis of both lower legs. Discussed with patient's family and ED doctor legs should be wrapped with bilateral Pradeep wraps. Discussed with ED doctor that a trial of Lasix could be considered. Patient has no nausea or vomiting. Clindamycin IV ordered emergency department by ED. Okay to discharge home on p.o. antibiotics. Debility. Discussed with patient's [id number] and patient that patient to stay at the hospital for physical therapy evaluation and occupational possibly for short-term shelter placement. However family thinks that they can manage debility at home. Dysuria Discussed with emergency plan doctor who will empirically treat. Abdominal bloating. Discussed with family and patient patient can try Mylanta at home. Charges/Coding Multi Select Codes Visit Charges Office Visit/Consults: 22656 ED Visit; Moderate Severity
[2021-05-05 20:00] VITALS: O2SAT 85
[2021-05-05 20:03] VITALS: BP 126/102; PULSE 69; RESP 18; TEMP 36.6; O2SAT 97
--- NOTE | 2021-05-05 20:56 | ECHOCS_ITS ---
Reason For Study: Hypoxia Procedure This was a 2D Doppler, Color Flow transthoracic echocardiogram. The study was technically difficult. Contrast injection was performed. Exam performed portable in patient room. Left Ventricle Normal LV size. Left ventricular systolic function is normal. The estimated ejection fraction is 70 %. Diastolic function is indeterminate. No regional wall motion abnormalities noted. Right Ventricle Normal RV size. Normal systolic function. Atria The left atrium is mildly enlarged. Normal right atrium. No doppler evidence for ASD. Mitral Valve There is no mitral annular calcification. Normal mitral valve. Trivial mitral valve insufficiency. Tricuspid Valve Normal tricuspid valve. Trivial tricuspid valve insufficiency. Right ventricular systolic pressure estimated to be 55 mmHg. Aortic Valve Trisinus/trileaflet aortic valve. Mild focal aortic valve calcification. Trivial aortic valve insufficiency. Pulmonic Valve The pulmonic valve is not well visualized. Trivial pulmonic valve insufficiency. Great Vessels Mildly dilated aortic root. Pericardium/Pleural No pericardial effusion. Medication Diluted definity 2ml given slow IV push to enhance endocardial definition. MMode/2D Measurements & Calculations LVIDd: 5.0 cm IVSd: 1.2 cm LVOT diam: 2.1 cm LVIDs: 2.6 cm LVPWd: 1.1 cm RVDd: 3.6 cm FS: 47.8 % LVOT area: 3.6 cm2 Ao root diam: 4.0 cm LAV(MOD-bp): 41.0 ml LVAd ap4: 29.0 cm2 LAV(MOD-bp) Indexed: 18.1 ml/m2 LVLd ap4: 7.3 cm LAV(MOD-sp2): 35.3 ml EDV(MOD-sp4): 94.3 ml LAV(MOD-sp4): 47.7 ml EDV(sp4-el): 97.0 ml LVAs ap4: 11.9 cm2 LVLs ap4: 5.3 cm ESV(MOD-sp4): 22.3 ml ESV(sp4-el): 22.9 ml EF(MOD-sp4): 76.3 % EF(sp4-el): 76.4 % SV(MOD-sp4): 71.9 ml SV(sp4-el): 74.0 ml LA A4 area: 18.1 cm2 LA dimension(2D): 4.8 cm RA A4 area: 13.0 cm2 Doppler Measurements & Calculations MV E max ever: 70.8 cm/sec Lat Peak E' Ever: 10.6 cm/sec Med Peak E' Ever: 6.7 cm/sec MV A max ever: 106.8 cm/sec E/E' lat: 6.7 E/E' med: 10.5 MV E/A: 0.66 Ao V2 max: 266.4 cm/sec LV V1 max: 156.3 cm/sec SV(LVOT): 116.1 ml Ao max P.5 mmHg LV V1 max P.8 mmHg Ao V2 mean: 175.7 cm/sec LV V1 mean P.4 mmHg Ao mean P.9 mmHg LV V1 mean: 109.2 cm/sec Ao V2 VTI: 48.7 cm LV V1 VTI: 32.0 cm WHITNEY(I,D): 2.4 cm2 WHITNEY(V,D): 2.1 cm2 PA V2 max: 144.9 cm/sec TR max ever: 361.9 cm/sec TR max P.4 mmHg ECHO/Echo Complete W/ Contrast Interpretation Summary The study was technically difficult. Contrast injection was performed. Left ventricular systolic function is normal. The estimated ejection fraction is 70 %. The left atrium is mildly enlarged. Trivial mitral valve insufficiency. Trivial tricuspid valve insufficiency. Mild focal aortic valve calcification. Trivial aortic valve insufficiency. Trivial pulmonic valve insufficiency. Mildly dilated aortic root. Right ventricular systolic pressure estimated to be 55 mmHg c/w pulmonary hyper tension. Diastolic function is indeterminate. Ordering Physician: Parish Carey Referring Physician: Fernando Velazquez Chi Performed By: Yamini Yañez, KHOA, RVT
[2021-05-05 20:59] VITALS: BMI 52.2
[2021-05-05 21:22] VITALS: BP 111/52; PULSE 76; RESP 18; TEMP 36.8; O2SAT 93
[2021-05-05] MEDS: MELATONIN 3 MG TABLET PO (22:57)
[2021-05-05] MEDS: Acetaminophen 325 MG Tablet 650 MG PO (22:57)
[2021-05-05] MEDS: Baclofen 10 MG Tablet PO (22:57)
[2021-05-05] MEDS: Furosemide 40 MG/4 ML Vial IV (22:57)
[2021-05-05] MEDS: 0.9% Saline Lock 10 ML Syringe IV (22:57)
[2021-05-05 23:39] VITALS: RESP 18
[2021-05-06] VITALS (10 sets, daily range): BP systolic 109–140; BP diastolic 71–96; PULSE 64–98; RESP 18; TEMP 36.4–36.7; O2SAT 84–99
[2021-05-06] MEDS: Nystatin Powder 15gm Bottle 1 APPLIC TOPICAL ×3 (04:13→21:19)
[2021-05-06] MEDS: Menthol/Lanolin/Calamine/Znox 113 GM Tube 1 APPLIC TOPICAL ×3 (04:13→18:20)
[2021-05-06] MEDS: Levothyroxine 75 MCG Tablet PO (04:13)
[2021-05-06 04:57] LABS: Absolute Lymphocyte Count 0.83 X10^3/uL (0.83-4.51); Absolute Neutrophil Count 3.2 X10^3/uL (2.0-7.7); Basophil# 0.03 X10^3/uL; Basophil% 0.6 % (0-1); Eosinophil# 0.57 X10^3/uL; Eosinophils% 10.9 % (0-5); Hematocrit 40.8 % (37-47); Hemoglobin 12.3 g/dL (12.0-15.0); Lymphocyte # 0.83 X10^3/ul (0.83-4.51); Lymphocyte % 15.9 % (19-41); Mean Corp Hgb Conc 30.1 g/dL (32-36); Mean Corpuscular Hgb 30.4 pg (27.0-32.0); Mean Corpuscular Volume 100.7 fL (81-99); Mean Platelet Vol. 10.1 fl (6.2-12.0); Monocyte# 0.62 X10^3/uL; Monocyte% 11.9 % (0-10); NRBC Flagged by Analyzer 0 % (0-5); Neutrophil # 3.16 X10^3/uL (2.7-7.7); Neutrophil % 60.3 % (47-70); Platelet Count 146 K/mm3 (150-450); RBC Distribution Width CV 12.6 % (11.6-14.6); RBC Distribution Width SD 47.2 fl (35.1-43.9); Red Blood Count 4.05 M/mm3 (4.2-5.4); White Blood Count 5.2 K/mm3 (4.4-11.0)
[2021-05-06 05:34] LABS: Anion Gap 2 (5-15); BUN 37 mg/dL (7-18); Calcium,Total 9.2 mg/dL (8.5-10.1); Chloride 105 mmol/L (98-107); Creatinine, Serum 1.32 mg/dL (0.55-1.02); EST Glomerular Filtration Rate 41 mL/min (>60); Est Glom Filt Rate - Afr Amer 49 mL/min (>60); Estimated Creatinine Clearance 29.06 ml/min; Glucose 96 mg/dL (74-106); Potassium 5.3 mmol/L (3.5-5.1); Sodium Level 142 mmol/L (136-145); Thyroid Stim Hormone (TSH) 2.86 uIU/mL (0.358-3.74)
--- NOTE | 2021-05-06 07:16 | PCS.PANDOC ---
PANDEMIC DOCUMENTATION INITIATED: Date: 12/11/2020 Time: 190
[2021-05-06 08:01] LABS: Mucous, Urine 0 SEEN /hpf (<or=2+); Red Blood Cells-Urine 0 SEEN /hpf (0-5); Squamous Epithelial Cells - UA 0 SEEN /hpf (5-10)
[2021-05-06 08:07] LABS: Color, Urine Yellow (Yellow); Glucose, Dipstick Normal (Normal); Ketone-Dipstick Negative (Negative); Leukocyte Esterase-Dipstick 500 /ul (Negative); Nitrite-Dipstick Positive (Negative); Occult Blood-Urine 25 /ul (Negative); Protein-Dipstick 30 mg/dl (Negative); Urine Bilirubin Dipstick Negative (Negative); Urine Clarity Cloudy (Clear); Urine Urobilinogen Normal (Normal)
[2021-05-06 08:13] LABS: Bacteria 2+ /hpf (None Seen); White Blood Cells 0-5 SEEN /hpf (0-5)
[2021-05-06] MEDS: Pantoprazole Sodium 40 MG Tablet PO (10:44)
[2021-05-06] MEDS: Folic Acid 1 MG Tablet PO (10:44)
[2021-05-06] MEDS: Multivitamins,Ther W-Minerals Tablet 1 TABLET PO (10:45)
[2021-05-06] MEDS: hydroCHLOROthiazide 12.5mg 12.5 MG PO (10:45)
[2021-05-06] MEDS: Cephalexin 500 MG Capsule PO ×2 (10:45→21:19)
[2021-05-06] MEDS: Enoxaparin 30 MG/0.3 ML Syringe SC (10:46)
[2021-05-06] MEDS: Furosemide 40 MG/4 ML Vial IV ×2 (10:46→18:21)
--- NOTE | 2021-05-06 13:12 | PCM.PN.HOSP ---
Subjective Subjective Patient was seen and examined today, she is resting quietly in bed and offers no complaints. Patient's creatinine today was 1.32 improved over admission, potassium remains at 5.3. I have stopped the patient's hydrochlorothiazide due to the fact that she is on IV Lasix. Patient's valsartan was held due to a systolic blood pressure of 109 today. I will reevaluate its use tomorrow. Objective Data Objective Data Vital Signs: Vital Signs Temp Pulse Resp BP Pulse Ox 98.0 F 65 18 109/71 95 05/06/21 10:15 05/06/21 11:33 05/06/21 10:15 05/06/21 10:15 05/06/21 10:15 Oxygen Flow Rate (L/min) 2 Oxygen Delivery Method Room Air Weight: 142.3 kg Body Mass Index (BMI) 52.2 Intake & Output: Intake and Output for Last 24 Hours 05/04/21 05/05/21 05/06/21 23:59 23:59 23:59 Intake Total 106 / 106 250 / 250 Output Total 600 / 600 1350 / 1350 Balance -494 / -494 -1100 / -1100 Lab / Micro Data Result Diagrams: 05/06/21 04:35 05/06/21 04:35 Labs: Laboratory Results - last 24 hr 05/05/21 16:45: WBC 4.9, RBC 4.03 L, Hgb 12.3, Hct 39.9, MCV 99.0, MCH 30.5, MCHC 30.8 L, RDW Std Deviation 45.8 H, RDW Coeff of Daisy 12.7, Plt Count 148 L, MPV 10.3, Immature Gran % (Auto) 0.400, Neut % (Auto) 61.8, Lymph % (Auto) 13.2 L, Spalding % (Auto) 11.9 H, Eos % (Auto) 11.9 H, Baso % (Auto) 0.8, Absolute Neuts (auto) 3.1, Absolute Lymphs (auto) 0.65 L, Nucleated RBC % 0 05/05/21 16:45: Sodium 141, Potassium 5.3 H, Chloride 105, Carbon Dioxide 32.0, Anion Gap 4 L, BUN 40 H, Creatinine 1.42 H, Estim Creat Clear Calc 27.01, Est GFR (MDRD) Af Amer 45 L, Est GFR (MDRD) Non-Af 38 L, BUN/Creatinine Ratio 28.2 H, Glucose 100, Calcium 9.4, Troponin I High Sens 11 05/05/21 16:45: B-Natriuretic Peptide 177.2 H 05/05/21 23:24: Urine Color Yellow, Urine Clarity Cloudy, Urine pH 5.0, Ur Specific [place] 1.010, Urine Protein 30 H, Urine Glucose (UA) Normal, Urine Ketones Negative, Urine Occult Blood 25 H, Urine Nitrite Positive H, Urine Bilirubin Negative, Urine Urobilinogen Normal, Ur Leukocyte Esterase 500 H, Urine RBC 0 SEEN, Urine WBC 0-5 SEEN, Ur Squamous Epith Cells 0 SEEN, Urine Bacteria 2+, Urine Mucus 0 SEEN 05/06/21 04:35: Ammonia 47.0 H 05/06/21 04:35: WBC 5.2, RBC 4.05 L, Hgb 12.3, Hct 40.8, MCV 100.7 H, MCH 30.4, MCHC 30.1 L, RDW Std Deviation 47.2 H, RDW Coeff of Daisy 12.6, Plt Count 146 L, MPV 10.1, Immature Gran % (Auto) 0.400, Neut % (Auto) 60.3, Lymph % (Auto) 15.9 L, Spalding % (Auto) 11.9 H, Eos % (Auto) 10.9 H, Baso % (Auto) 0.6, Absolute Neuts (auto) 3.2, Absolute Lymphs (auto) 0.83, Nucleated RBC % 0 05/06/21 04:35: Sodium 142, Potassium 5.3 H, Chloride 105, Carbon Dioxide 35.0 H, Anion Gap 2 L, BUN 37 H, Creatinine 1.32 H, Estim Creat Clear Calc 29.06, Est GFR (MDRD) Af Amer 49 L, Est GFR (MDRD) Non-Af 41 L, BUN/Creatinine Ratio 28.0 H, Glucose 96, Calcium 9.2, TSH 2.86 Micro: Microbiology 05/05/21 13:30 Urine, Random Urine Culture - Preliminary 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 Electronically Signed: Kris Orta MD at 17:46 EST Tel , Service support , Physical Exam Const alert and no apparent distress Constitutional Narrative: Patient appears older than her stated age General Appearance: cooperative, well kempt and well developed Orientation / Consciousness: awake, oriented to person, oriented to place and oriented to time Nutritional Appearance: morbidly obese HEENT normocephalic, head/scalp atraumatic and moist oral mucous membranes Head and Scalp: normocephalic Eyes PERRL, EOMs intact bilaterally and conjunctivae normal Neck nuchal rigidity, supple, no JVD, thyroid normal and no carotid bruits General: trachea midline Resp normal respiratory effort, no retractions, no use of accessory muscles and clear to auscultation bilaterally Auscultation: Negative for rales, rhonchi or wheezes Cardio regular rate, regular rhythm, no murmurs, no rub and no gallops GI normal to inspection, nondistended, normoactive bowel sounds, soft to palpation, non-tender and non-distended Extremity Extremity Narrative: There is pitting edema noted over the lower legs bilaterally, lower legs are wrapped with an Pradeep wrap at this time, there are venous stasis changes over skin over both lower legs. Skin no rashes or lesions noted General Skin Exam: no breakdown Neuro CN's II-XII intact bilaterally, no focal motor deficits and no sensory deficits noted Sensorium / Orientation: awake and alert Speech: speech normal Psych thought process normal and affect normal Assessment & Plan Assessment/Plan (1) Venous stasis dermatitis of both lower extremities: PLAN: 1. Hypoxia-etiology unclear, patient is currently on room air #2 anasarca-patient is receiving IV Lasix at this time #3 generalized debility-secondary to advanced age, morbid obesity, and medical problems, patient's family requested that she be placed in a [place] [facility] facility for rehab services, PT and OT will see the patient and do an evaluation, it is my knowledge that patient does not ambulate at home, there seems to be a problem with the patient's son being on disability-patient lives with her son-and there is some concern he is not able to take care of the patient. #4 hyperkalemia-patient's labs will be rechecked tomorrow #5 essential hypertension-patient's blood pressure medications will be monitored, they may need to be changed or held #6 hypothyroidism-patient is on levothyroxine #7 chronic kidney disease stage IIIb-etiology unclear, labs will be monitored #8 bacteriuria-cannot rule out a cystitis at this time, I will adjust her Keflex dosage, her nitrites were positive in the urine and her leukocyte esterase was 500. #9 morbid obesity-complicates care and recovery, nutritional services seeing patient Charges/Coding Visit Charges Inpatient E&M: 89249 Subs Hosp L2
--- NOTE | 2021-05-06 17:25 | RAD_ITS ---
EXAM: XR RIGHT FOOT, 2 VIEWS : 1935 CLINICAL INDICATION: bruising pain right foot -- attention 2,3,4th toes TECHNIQUE: Frontal and lateral views of the right foot. This report was created using Fastly report generation technology. COMPARISON: 11/26/2016. FINDINGS: LIMITATIONS: On the study is limited due to suboptimal positioning. BONES/JOINTS: The bones are markedly osteopenic greatest in the distal fourth and fifth metatarsals. No acute fracture. No subluxation. Normal alignment. Preservation of the joint space. No sclerotic or destructive changes observed. SOFT TISSUES: There is soft tissue swelling over the dorsum of the foot. No radiopaque foreign body. RAD/Foot 2 Views IMPRESSION: Marked osteopenia with no acute osseous abnormalities. There is soft tissue swelling present. at 0210 Reported and signed by: Felice Gupta MD Electronically Signed: Felice Gupta MD at 2:08 EST Tel , Service support ,
[2021-05-06] MEDS: Baclofen 10 MG Tablet 5 MG PO (21:19)
[2021-05-06] MEDS: MELATONIN 10 MG TABLET PO (21:20)
[2021-05-06] MEDS: VORTIOXETINE HYDROBROMIDE 10 MG TABLET PO (21:44)
[2021-05-07] VITALS (12 sets, daily range): BP systolic 96–120; BP diastolic 58–71; PULSE 50–95; RESP 18; TEMP 36.7–36.8; O2SAT 85–98
[2021-05-07] MEDS: Levothyroxine 75 MCG Tablet PO (04:07)
[2021-05-07 06:45] LABS: Anion Gap 2 (5-15); BUN 29 mg/dL (7-18); BUN/Creat Ratio 24.8 RATIO (10-20); Calcium,Total 8.8 mg/dL (8.5-10.1); Chloride 101 mmol/L (98-107); Creatinine, Serum 1.17 mg/dL (0.55-1.02); EST Glomerular Filtration Rate 47 mL/min (>60); Est Glom Filt Rate - Afr Amer 57 mL/min (>60); Estimated Creatinine Clearance 32.78 ml/min; Glucose 100 mg/dL (74-106); Sodium Level 138 mmol/L (136-145)
--- NOTE | 2021-05-07 09:02 | WOUNDNOTE ---
Was asked to see patient for redness and edema to bilateral lower legs. removed the ERMELINDA wraps. there are no open areas noted. there is still moderate redness noted. the edema appears to have improved. patient denies pain in the legs. states they are just itchy. washed legs and feet with soap and water. pat dry. applied aloe vesta and wrapped with kerlix. reapplied the ERMELINDA wraps from the base of the toes to just below the knees. pt tolerated well. see skin photos.
[2021-05-07] MEDS: Cephalexin 500 MG Capsule PO ×2 (09:33→20:58)
[2021-05-07] MEDS: Losartan Potassium 100 MG Tablet PO (09:33)
[2021-05-07] MEDS: Multivitamins,Ther W-Minerals Tablet 1 TABLET PO (09:33)
[2021-05-07] MEDS: Folic Acid 1 MG Tablet PO (09:33)
[2021-05-07] MEDS: Furosemide 40 MG/4 ML Vial IV ×2 (09:33→17:55)
[2021-05-07] MEDS: Nystatin Powder 15gm Bottle 1 APPLIC TOPICAL ×2 (09:33→20:58)
[2021-05-07] MEDS: Enoxaparin 30 MG/0.3 ML Syringe SC (09:33)
[2021-05-07] MEDS: Pantoprazole Sodium 40 MG Tablet PO (09:33)
[2021-05-07] MEDS: Menthol/Lanolin/Calamine/Znox 113 GM Tube 1 APPLIC TOPICAL ×2 (09:34→20:59)
--- NOTE | 2021-05-07 09:57 | WOUNDNOTE ---
skin photo: bilateral lower legs
--- NOTE | 2021-05-07 09:58 | WOUNDNOTE ---
skin photo: left lower leg
--- NOTE | 2021-05-07 14:20 | CASEMGMT ---
Social Work SW received referral for SNF placement. SW met with pt and introduced self and role of SW. Pt is alert and oriented x3 and agreeable to complete assessment with SW. PCP:Marcus Specialists: None Preferred Pharmacy: [facility] Insurance: Medicare and secondary Prescription Benefit: Yes Living Will/HPOA: Pt has a Living Will and Health Care POA naming his son Jose Bruno as HCPOA LNOK: Son - Jose and Monica Bruno, Daughter in law Frias and Daughter [place] Living Arrangements: Pt lives in a one story home with ramp entrance. Pt's son and daughter in law Garcia and Monica Bruno live with pt and son is disabled and home all the time. Pt does not walk but does have an electric wheelchair that she uses. Pt is able to transfer self to the toilet and back to the w/c independently and is able to transfer from her w/c to the lift chair where she sleeps. Pt's daughter in law Frias comes over to assist with bathing and pt states she stays in a robe and does not get dressed. Pt Dgt in law Anderson picks up groceries for pt and pt is able to put frozen in meals in microwave and care for own meals. Transportation: Pt states she has a wheelchair accessible van and her [employer] Frias transports to needed appoinments. DME: Pt has an electric wheelchair and bedside commode HHC/SNF: Pt has previously had home health PT and [facility] through [facility]. Pt has been to [facility] in the past. Pt is currently Max A x2 for sit to stand and stand pivot transfers. Pt confirms she will not have assistance with this at home. SW provided list of SNF providers including quality and resource use data and consistent with the patient's preferred geographic region, medical needs and insurance network. Pt preferred provider is [facility]. Referral to [facility] in TCU. Will await determination. NICOLETTE Agustin
--- NOTE | 2021-05-07 15:28 | CASEMGMT ---
Addendum entered by Dayna Powell 05/07/21 16:36: Social Work Return call from [facility] and pt has been accepted. Pt and son notified and agreeable. Plan: [facility], when medically ready NICOLETTE Agustin Original Note: Social Work TCU is not able to accept pt at this time. SW met with pt and explained that TCU cannot accept. SW reviewed list with pt and pt next choice is [facility]. Referral to [facility] and they do have beds available. Referral faxed and will await determination if they can accept. With pt permission phone call placed to pt son to discuss discharge plan. Jose updated on the above and appreciative of information. [facility] will follow for placement. Plan: [facility], pending acceptance NICOLETTE Agustin
--- NOTE | 2021-05-07 16:06 | PN.HOSP_ITS ---
Subjective Subjective Patient was seen and examined today, she appeared lethargic and somnolent, she did not appear in any distress, when I asked her how she was doing she stated I am still here, patient's family would like the patient to be placed in a residential facility, I explained this to the patient and she had no questions concerning this. Objective Data Objective Data Vital Signs: Vital Signs Temp Pulse Resp BP Pulse Ox 98.3 F 66 18 96/61 85 05/07/21 14:11 05/07/21 14:59 05/07/21 14:11 05/07/21 14:11 05/07/21 14:19 Oxygen Flow Rate (L/min) 2 Oxygen Delivery Method Room Air Weight: 142.3 kg Body Mass Index (BMI) 52.2 Intake & Output: Intake and Output for Last 24 Hours 05/05/21 05/06/21 05/07/21 23:59 23:59 23:59 Intake Total 106 / 106 500 / 500 Output Total 600 / 600 3150 / 3150 2450 / 2450 Balance -494 / -494 -2650 / -2650 -2450 / -2450 Lab / Micro Data Result Diagrams: 05/06/21 04:35 05/07/21 05:33 Labs: Laboratory Results - last 24 hr 05/07/21 05:33: Sodium 138, Potassium 5.0, Chloride 101, Carbon Dioxide 35.0 H, Anion Gap 2 L, BUN 29 H, Creatinine 1.17 H, Estim Creat Clear Calc 32.78, Est GFR (MDRD) Af Amer 57 L, Est GFR (MDRD) Non-Af 47 L, BUN/Creatinine Ratio 24.8 H , Glucose 100, Calcium 8.8 Micro: Microbiology 05/05/21 13:30 Urine, Random Urine Culture - Final Escherichia coli 05/05/21 20:11 Nasal Secretion SARS-CoV-2 Antigen (Rapid) - Final Radiography Diagnostic Testing: Radiology Impression Echocardiogram 05/05/21 20:56 Interpretation Summary The study was technically difficult. Contrast injection was performed. Left ventricular systolic function is normal. The estimated ejection fraction is 70 %. The left atrium is mildly enlarged. Trivial mitral valve insufficiency. Trivial tricuspid valve insufficiency. Mild focal aortic valve calcification. Trivial aortic valve insufficiency. Trivial pulmonic valve insufficiency. Mildly dilated aortic root. Right ventricular systolic pressure estimated to be 55 mmHg c/w pulmonary hypertension. Diastolic function is indeterminate. Ordering Physician: Parish Carey Referring Physician: Fernando Velazquez Chi Performed By: Yamini Yañez, ORIONCS, RVT Foot X-Ray 05/06/21 17:25 IMPRESSION: Marked osteopenia with no acute osseous abnormalities. There is soft tissue swelling present. at 0210 Reported and signed by: Felice Gupta MD Electronically Signed: Felice Gupta MD at 2:08 EST Tel , Service support , Physical Exam Narrative Constitutional Narrative: Patient appears older than her stated age, she is somnolent at the time of my examination but responds appropriately to questions General Appearance: cooperative, well kempt and well developed Nutritional Appearance: morbidly obese HEENT normocephalic, head/scalp atraumatic and moist oral mucous membranes Head and Scalp: normocephalic Eyes PERRL, EOMs intact bilaterally and conjunctivae normal Neck nuchal rigidity, supple, no JVD, thyroid normal and no carotid bruits General: trachea midline Resp normal respiratory effort, no retractions, no use of accessory muscles and clear to auscultation bilaterally Auscultation: Negative for rales, rhonchi or wheezes Cardio regular rate, regular rhythm, no murmurs, no rub and no gallops GI normal to inspection, nondistended, normoactive bowel sounds, soft to palpation, non-tender and non-distended Extremity Extremity Narrative: There is pitting edema noted over the lower legs bilaterally, there are venous stasis changes over skin over both lower legs. Skin no rashes or lesions noted General Skin Exam: no breakdown Neuro CN's II-XII intact bilaterally, no focal motor deficits and no sensory deficits noted Sensorium / Orientation: Lethargic Speech: speech normal Psych Patient is lethargic but responds appropriately to simple questions Const alert and no apparent distress Constitutional Narrative: Patient appears older than her stated age General Appearance: cooperative, well kempt and well developed Orientation / Consciousness: awake, oriented to person, oriented to place and oriented to time Nutritional Appearance: morbidly obese HEENT normocephalic, head/scalp atraumatic and moist oral mucous membranes Eyes PERRL, EOMs intact bilaterally and conjunctivae normal Neck nuchal rigidity, supple, no JVD, thyroid normal and no carotid bruits General: trachea midline Resp normal respiratory effort, no retractions, no use of accessory muscles and clear to auscultation bilaterally Auscultation: Negative for rales, rhonchi or wheezes Cardio regular rate, regular rhythm, no murmurs, no rub and no gallops GI normal to inspection, nondistended, normoactive bowel sounds, soft to palpation, non-tender and non-distended Extremity Extremity Narrative: There is pitting edema noted over the lower legs bilaterall y, lower legs are wrapped with an Pradeep wrap at this time, there are venous stasis changes over skin over both lower legs. Skin no rashes or lesions noted General Skin Exam: no breakdown Neuro CN's II-XII intact bilaterally, no focal motor deficits and no sensory deficits noted Sensorium / Orientation: awake and alert Speech: speech normal Psych thought process normal and affect normal Assessment & Plan Assessment/Plan (1) Dysuria: (2) Venous stasis dermatitis of both lower extremities: PLAN: 1. Hypoxia-etiology unclear, patient is currently on 2 L via nasal cannula, continue to monitor pulse ox #2 anasarca-patient is receiving IV Lasix at this time #3 generalized debility-secondary to advanced age, morbid obesity, and medical problems, patient's family requested that she be placed in a residential facility for rehab services, PT and OT will see the patient and do an evaluation, it is my knowledge that patient does not ambulate at home, there seems to be a problem with the patient's son being on disability-patient lives with her son-and there is some concern he is not able to take care of the patient. #4 hyperkalemia-resolved at this time, BMP will be ordered for the morning #5 essential hypertension-patient's blood pressure medications will be monitored, they may need to be changed or held #6 hypothyroidism-patient is on levothyroxine #7 chronic kidney disease stage IIIb-etiology unclear, labs will be monitored #8 bacteriuria-cannot rule out a cystitis at this time, patient is on Keflex twice daily #9 morbid obesity-complicates care and recovery, nutritional services seeing patient Charges/Coding Visit Charges Inpatient E&M: 31470 Subs Hosp L2
--- NOTE | 2021-05-07 17:04 | CHAPLAIN ---
Type of Pastoral Visit _x__ Initial Visit ___ Follow-up Visit ___ On-call Visit ___ General Patient Visit ___ Spiritual Assessment ___ Family Conference ___ Bereavement ___ Rapid Response ___ Code Blue ___ Other (describe below) Pastoral Care Referral From _x__ Patient ___ Family ___ Nurse ___ Physician ___ Torpedo Man ___ Tongue And Groove Machine Operator ___ Other (describe below) Sacrament/Intervention _x__ Active listening ___ Anointing ___ Restorationist ___ Bereavement ___ Communion _x__ Carli exploration ___ _x__ Life review _x__ Prayer ___ Reconciliation ___ Sacrament of Sick _x__ Supportive presence ___ Wedding ___ Other (describe below) Pastoral Comments
[2021-05-07] MEDS: MELATONIN 10 MG TABLET PO (20:58)
[2021-05-07] MEDS: VORTIOXETINE HYDROBROMIDE 10 MG TABLET PO (20:58)
[2021-05-07] MEDS: Baclofen 10 MG Tablet 5 MG PO (20:58)
[2021-05-07] MEDS: Acetaminophen 325 MG Tablet 650 MG PO (21:02)
[2021-05-08] VITALS (9 sets, daily range): BP systolic 98–132; BP diastolic 53–60; PULSE 48–64; RESP 12–25; TEMP 36.7–37.1; O2SAT 93–98
[2021-05-08] MEDS: Levothyroxine 75 MCG Tablet PO (05:19)
[2021-05-08 06:32] LABS: Anion Gap -1 (5-15); BUN 27 mg/dL (7-18); BUN/Creat Ratio 21.4 RATIO (10-20); Calcium,Total 8.9 mg/dL (8.5-10.1); Chloride 99 mmol/L (98-107); Creatinine, Serum 1.26 mg/dL (0.55-1.02); EST Glomerular Filtration Rate 43 mL/min (>60); Est Glom Filt Rate - Afr Amer 52 mL/min (>60); Estimated Creatinine Clearance 30.44 ml/min; Glucose 94 mg/dL (74-106); Potassium 5.1 mmol/L (3.5-5.1); Sodium Level 137 mmol/L (136-145)
[2021-05-08] MEDS: Cephalexin 500 MG Capsule PO (09:03)
[2021-05-08] MEDS: Pantoprazole Sodium 40 MG Tablet PO (09:03)
[2021-05-08] MEDS: Losartan Potassium 100 MG Tablet PO (09:04)
[2021-05-08] MEDS: Enoxaparin 30 MG/0.3 ML Syringe SC (09:04)
[2021-05-08] MEDS: Furosemide 40 MG/4 ML Vial IV (09:04)
[2021-05-08] MEDS: Folic Acid 1 MG Tablet PO (09:04)
[2021-05-08] MEDS: Multivitamins,Ther W-Minerals Tablet 1 TABLET PO (09:04)
[2021-05-08] MEDS: Acetaminophen 325 MG Tablet 650 MG PO (09:04)
[2021-05-08] MEDS: Menthol/Lanolin/Calamine/Znox 113 GM Tube 1 APPLIC TOPICAL (09:04)
[2021-05-08] MEDS: Nystatin Powder 15gm Bottle 1 APPLIC TOPICAL (09:05)
[2021-05-08 13:50] LABS: Allen Test Positive; Base Excess 11 mmol/L (-2 to +2); Bicarbonate 37.9 mmol/L (22-26); Blood Gas Specimen Type ART; FI02 21; O2 Delivery Device Room Air; PO2 45 mmHG (75-100); SITE L Radial; SO2 69 % (95-99); Total Carbon Dioxide 41 mmol/L; pCO2 89.2 mmHg (35-45); pH 7.24 (7.35-7.45)
--- NOTE | 2021-05-08 14:33 | CASEMGMT ---
Social Work Per physician, pt is not ready for discharge today. Pt son and [facility] updated that pt is not ready for discharge. NICOLETTE Herrera
--- NOTE | 2021-05-08 15:43 | TREXTCAR_ITS ---
Diet 05/05/21 20:56 Diet: Cardiac - Heart Healthy Food consistency:: Regular Liquid Consistency:: Regular/Thin Dietary Modifications:: Potassium Restricted Type of Dietary Supplement:: Magic Cup Dessert Fluid restriction:: 1500 mL Diet Comments: magic cup w/ lunch and dinner Routine Orders/Code Status O2 Liters per Minute: 2-3 liters O2 Frequency: Continuous Keep PO Greater than or Equal to (%): 90 Wound(s) BLE: Wound Type: cellulitis Therapies Weight Bearing: Non weight bearing Physical Therapy: Eval and Treat Occupational Therapy: Eval and Treat Problem/Diagnosis (1) Dysuria: Status: Acute Comment: due to cystitis (2) Venous stasis dermatitis of both lower extremities: Status: Chronic (3) Acute cystitis: Status: Acute Comment: E.coli (4) Hypoventilation associated with obesity: Status: Chronic Comment: won't wear bipap, compliant with oxygen (5) Acute respiratory failure with hypoxia and hypercarbia: Status: Acute Comment: newly diagnosed, due to hypoventilation (6) Rheumatoid arthritis: Status: Chronic (7) HTN (hypertension): Status: Chronic (8) Fibromyalgia: Status: Chronic (9) GERD (gastroesophageal reflux disease): Status: Chronic (10) Obesity: Status: Chronic (11) Pulmonary hypertension: Status: Chronic Comment: mild (12) Chronic kidney disease (CKD) stage G3b/A1, moderately decreased glomerular filtration rate (GFR) between 30-44 mL/min/1.73 square meter and albuminuria creatinine ratio less than 30 mg/g: Status: Chronic Allergies/Procedures Done in Hospital Allergies lisinopril Allergy (Verified 05/05/21 15:58) Unknown Penicillins Allergy (Verified 05/05/21 15:58) Unknown Procedures: 2-D Echocardiogram (normal EF, mild pulmonary hypertension) Type of Care/Length of Stay Estimated LOS: Convalescent Care Less Than 30 days Type of Care Needed: Skilled Rehab Potential: Fair Prognosis: Fair Additional Orders/Day of Discharge Additional Orders: Bipap 12/5 with 30% oxygen, rate 16 when sleeping and at nite-patient refused at hospital H&P will serve as current which was dated: 05/05/21 Day of Discharge: 05/08/21 Dietary and Speech Recommendations Dietitian Recommendations/Changes: continue cardiac diet w/ 2000mL fluid restriction as indicated; will add potassium restriction and adjust pending labs. Will add magic cup BID w/ meals for additional protein if consumed given reported dislike of meat. Discharge Plan Admission Admit Date/Time: 05/05/21 19:58 Primary Reason for Your Visit: cystitis, debility, acute combined respiratory failure Attending Provider: Sam Hassan Primary Care Provider: Fernando Velazquez Chi Instructions Patient Instructions: Cellulitis, ED Peripheral Edema, Bilateral, ED Lymphedema Additional Instructions / Restrictions: Keflex 4 times a day. Call and follow-up with Dr. Velazquez this week. Return if feeling worse. Discharge Orders/Prescriptions Prescriptions: New cephalexin 500 mg capsule 500 mg PO Q6H 10 Days Qty: 40 RF: 0 acetaminophen [Tylenol] 325 mg Tablet 650 mg PO Q6H PRN PRN (Reason: Pain Score 1-10/Temp > 100.7 F) Qty: 0 RF: 0 cephalexin 500 mg Capsule 500 mg PO Q12 Qty: 0 RF: 0 nystatin [Nyamyc] 100,000 unit/gram Powder 1 applic topical BID Qty: 0 RF: 0 losartan 100 mg Tablet 100 mg PO DAILY Qty: 1 RF: 0 nebivolol [Bystolic] 5 mg Tablet 2.5 mg PO DAILY Qty: 0 RF: 0 menthol-zinc oxide [Calmoseptine] 0.44-20.6 % Ointment 1 applic topical BID Qty: 0 RF: 0 Trintellix 10 mg Tablet 10 mg PO HS Qty: 0 RF: 0 furosemide [Lasix] 40 mg tablet 40 mg PO DAILY Qty: 1 RF: 0 potassium chloride 10 mEq tablet extended release 20 meq PO DAILY Qty: 1 RF: 0 Continued levothyroxine 75 MCG tablet 75 mcg PO DAILY RF: 0 folic acid 1 MG tablet 1 mg PO DAILY@0800 RF: 0 esomeprazole magnesium 40 MG capsule 40 mg PO DAILY RF: 0 multivitamin with minerals 1 EACH tablet 1 ea PO DAILY RF: 0 albuterol sulfate 1 INHALER inhaler 2 puff inhalation Q4H PRN PRN (Reason: Wheezing) RF: 0 vortioxetine 10 MG tablet 10 mg PO DAILY RF: 0 melatonin 10 mg tablet extended release 10 mg PO PCHS RF: 0 Discontinued baclofen 10 MG tablet 10 mg PO QHS RF: 0 nebivolol [Bystolic] 5 MG tablet 5 mg PO DAILY RF: 0 valsartan-hydrochlorothiazide 1 EACH tablet 1 ea PO DAILY RF: 0 Referrals / Follow Up: Fernando Velazquez Chi, MD [Primary Care Provider] - 3-5 Days Disposition Disposition (needs filled in before D/C Order can be placed): [facility]
--- NOTE | 2021-05-08 16:37 | CASEMGMT ---
Social Work SW spoke with physician who has decided that pt can discharge today. [facility] and pt son Jose updated on change of plans. 7000 convalescent form completed in [employer] system. Orders faxed to [facility]. Pt notified of d/c. Covid test is pending. Nursing to set up transportation when covid test is resulted. Plan: [facility] skilled level of care, convalescent stay. NICOLETTE Agustin
--- NOTE | 2021-05-08 17:49 | NURSING ---
report called to [facility]
--- NOTE | 2021-05-08 18:01 | CPS ---
dr orellana notified of critical values on ABG
--- NOTE | 2021-05-08 18:39 | DS.PCM_ITS ---
Providers Date of Admission: 05/05/21 Date of Discharge: 05/08/21 Primary Care Physician: Dr. 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 Routine Comment: ble cellulitis/lymphedema -pt has lymphedema pumps Reason for Consult:: cellulitis w/lymphedema Comments:: mitzi wraps on, edema and redness improving Reason For Visit: acute hypoxemic respiratory failure Diagnosis Discharge Diagnosis (1) Dysuria: Status: Acute Code(s): R30.0 - Dysuria (2) Venous stasis dermatitis of both lower extremities: Status: Chronic Code(s): I87.2 - Venous insufficiency (chronic) (peripheral) (3) Acute cystitis: Status: Acute Code(s): N30.00 - Acute cystitis without hematuria (4) Hypoventilation associated with obesity: Status: Chronic Code(s): E66.2 - Morbid (severe) obesity with alveolar hypoventilation (5) Acute respiratory failure with hypoxia and hypercarbia: Status: Acute Code(s): J96.01 - Acute respiratory failure with hypoxia; J96.02 - Acute respiratory failure with hypercapnia (6) Rheumatoid arthritis: Status: Chronic Code(s): M06.9 - Rheumatoid arthritis, unspecified (7) HTN (hypertension): Status: Chronic Code(s): I10 - Essential (primary) hypertension (8) Fibromyalgia: Status: Chronic (9) GERD (gastroesophageal reflux disease): Status: Chronic Code(s): K21.9 - Gastro-esophageal reflux disease without esophagitis (10) Obesity: Status: Chronic Code(s): E66.9 - Obesity, unspecified (11) Pulmonary hypertension: Status: Chronic Code(s): I27.20 - Pulmonary hypertension, unspecified (12) Chronic kidney disease (CKD) stage G3b/A1, moderately decreased glomerular filtration rate (GFR) between 30-44 mL/min/1.73 square meter and albuminuria creatinine ratio less than 30 mg/g: Status: Chronic Code(s): N18.32 - Chronic kidney disease, stage 3b Plan: 1. Hypoxia-etiology unclear, possibly secondary to hypoventilation #2 anasarca #3 generalized debility-secondary to advanced age, morbid obesity, and medical problems #4 hyperkalemia #5 essential hypertension #6 hypothyroidism #7 chronic kidney disease stage IIIb-etiology unclear #8 bacteriuria #9 morbid obesity Medications at Discharge Home Medications folic acid 1 mg PO DAILY@0800 04/29/17 levothyroxine 75 mcg PO DAILY 04/29/17 albuterol sulfate 2 puff INHALATION Q4H PRN PRN 03/16/19 esomeprazole magnesium 40 mg PO DAILY 03/16/19 multivitamin with minerals 1 ea PO DAILY 03/16/19 vortioxetine 10 mg PO DAILY 03/16/19 cephalexin 500 mg PO Q6H 10 Days #40 cap 05/05/21 melatonin 10 mg PO PCHS 05/05/21 acetaminophen [Tylenol] 650 mg PO Q6H PRN PRN #0 tab 05/08/21 cephalexin 500 mg PO Q12 #0 cap 05/08/21 furosemide [Lasix] 40 mg PO DAILY #1 tab 05/08/21 losartan 100 mg PO DAILY #1 tab 05/08/21 menthol-zinc oxide [Calmoseptine] 1 applic TOPICAL BID #0 g 05/08/21 nebivolol [Bystolic] 2.5 mg PO DAILY #0 tab 05/08/21 nystatin [Nyamyc] 1 applic TOPICAL BID #0 g 05/08/21 potassium chloride 20 meq PO DAILY #1 tab 05/08/21 vortioxetine [Trintellix] 10 mg PO HS #0 tab 05/08/21 Hospital Course Operations None Procedures None Summary of Care Provided Minutes Spent on Discharge: 34 Hospital Course: This 85-year-old white female who is wheelchair-bound and lives at home with her son and [id number] was seen in the emergency room at [facility] with complaints of bilateral lower extremity edema with redness and discomfort. Patient also had mild shortness of breath. Work- up in the emergency room did not show the patient to be hypoxic, there was +1 pitting edema noted over both lower extremities with stasis dermatitis changes over both lower extremities. Patient was afebrile, CBC was unremarkable, chemistry profile was remarkable for potassium of 5.3, creatinine of 1.42, BUN of 40, and the patient's beta beta natruretic peptide was elevated at 177. Chest x-ray was normal. UA showed positive nitrites, 0-5 WBCs and +2 bacteria. Patient was admitted to [facility], she was seen by PT and OT, she was placed on IV Lasix, and she was treated for presumed cystitis. Patient's family requested placement in a custodial facility for short-term rehab services, patient also required low-flow nasal cannula oxygen during her hospitalization- she did not appear short of breath-and work-up concerning this did not show an obvious cause for the hypoxia. It was felt that the patient had hypoventilation syndrome due to her morbid obesity. On 05/08/2021, patient was seen and examined:onstitutional Narrative: Patient appears older than her stated age, she is somnolent at the time of my examination but responds appropriately to questions General Appearance: cooperative, well kempt and well developed Nutritional Appearance: morbidly obese HEENT normocephalic, head/scalp atraumatic and moist oral mucous membranes Head and Scalp: normocephalic Eyes PERRL, EOMs intact bilaterally and conjunctivae normal Neck nuchal rigidity, supple, no JVD, thyroid normal and no carotid bruits General: trachea midline Resp normal respiratory effort, no retractions, no use of accessory muscles and clear to auscultation bilaterally Auscultation: Negative for rales, rhonchi or wheezes Cardio regular rate, regular rhythm, no murmurs, no rub and no gallops GI normal to inspection, nondistended, normoactive bowel sounds, soft to palpation, non-tender and non-distended Extremity Extremity Narrative: There is pitting edema noted over the lower legs bilaterally, there are venous stasis changes over skin over both lower legs. Skin no rashes or lesions noted General Skin Exam: no breakdown Neuro CN's II-XII intact bilaterally, no focal motor deficits and no sensory deficits noted Sensorium / Orientation: Lethargic Speech: speech normal On 05/08/2021, patient appeared stable for transfer to a local extended care facility for short-term rehab services. Weight / BMI Weight Weight: 144.7 kg Body Mass Index (BMI) 52.2 ABG / Lab / Microbiology Data Result Diagrams: 05/06/21 04:35 05/08/21 05:01 Laboratory: Laboratory Results - last 24 hr 05/08/21 05:01: Sodium 137, Potassium 5.1, Chloride 99, Carbon Dioxide 39.0 H, Anion Gap -1 L, BUN 27 H, Creatinine 1.26 H, Estim Creat Clear Calc 30.44, Est GFR (MDRD) Af Amer 52 L, Est GFR (MDRD) Non-Af 43 L, BUN/Creatinine Ratio 21.4 H , Glucose 94, Calcium 8.9 Microbiology: Microbiology 05/08/21 15:57 Nasal Secretion SARS-CoV-2 Antigen (Rapid) - Final 05/05/21 13:30 Urine, Random Urine Culture - Final Escherichia coli 05/05/21 20:11 Nasal Secretion SARS-CoV-2 Antigen (Rapid) - Final ABG: ABG 05/08/21 13:45 Specimen Type ART Sample Site L Radial pH 7.24 L Bicarbonate Actual 37.9 H Total CO2 41 Base Excess 11 H O2 Saturation 69 L O2 % 21 ABG pCO2 89.2 H* ABG pO2 45 L Larry Test Positive O2 Delivery Device Room Air Crit Call To/Read Back Yes Meaningful Use Info Meaningful Use Diagnoses (Choose all that apply): None applicable Discharge Plan Admission Admit Date/Time: 05/05/21 19:58 Primary Reason for Your Visit: cystitis, debility, acute combined respiratory failure Attending Provider: Sam Hassan Primary Care Provider: Fernando Velazquez Chi Instructions Patient Instructions: Cellulitis, ED Peripheral Edema, Bilateral, ED Lymphedema Additional Instructions / Restrictions: Keflex 4 times a day. Call and follow-up with Dr. Velazquez this week. Return if feeling worse. Discharge Orders/Prescriptions Prescriptions: New cephalexin 500 mg capsule 500 mg PO Q6H 10 Days Qty: 40 RF: 0 acetaminophen [Tylenol] 325 mg Tablet 650 mg PO Q6H PRN PRN (Reason: Pain Score 1-10/Temp > 100.7 F) Qty: 0 RF: 0 cephalexin 500 mg Capsule 500 mg PO Q12 Qty: 0 RF: 0 nystatin [Nyamyc] 100,000 unit/gram Powder 1 applic topical BID Qty: 0 RF: 0 losartan 100 mg Tablet 100 mg PO DAILY Qty: 1 RF: 0 nebivolol [Bystolic] 5 mg Tablet 2.5 mg PO DAILY Qty: 0 RF: 0 menthol-zinc oxide [Calmoseptine] 0.44-20.6 % Ointment 1 applic topical BID Qty: 0 RF: 0 Trintellix 10 mg Tablet 10 mg PO HS Qty: 0 RF: 0 furosemide [Lasix] 40 mg tablet 40 mg PO DAILY Qty: 1 RF: 0 potassium chloride 10 mEq tablet extended release 20 meq PO DAILY Qty: 1 RF: 0 Continued levothyroxine 75 MCG tablet 75 mcg PO DAILY RF: 0 folic acid 1 MG tablet 1 mg PO DAILY@0800 RF: 0 esomeprazole magnesium 40 MG capsule 40 mg PO DAILY RF: 0 multivitamin with minerals 1 EACH tablet 1 ea PO DAILY RF: 0 albuterol sulfate 1 INHALER inhaler 2 puff inhalation Q4H PRN PRN (Reason: Wheezing) RF: 0 vortioxetine 10 MG tablet 10 mg PO DAILY RF: 0 melatonin 10 mg tablet extended release 10 mg PO PCHS RF: 0 Discontinued baclofen 10 MG tablet 10 mg PO QHS RF: 0 nebivolol [Bystolic] 5 MG tablet 5 mg PO DAILY RF: 0 valsartan-hydrochlorothiazide 1 EACH tablet 1 ea PO DAILY RF: 0 Referrals / Follow Up: Fernando Velazquez Chi, MD [Primary Care Provider] - 3-5 Days Disposition Disposition (needs filled in before D/C Order can be placed): Care Home Facility Charges/Coding Visit Charges Inpatient E&M: 90087 Disch Hosp
== END 2021-05-08 19:05 | DRG 299 ==
LOC: ED 20:00 → MS2 20:39
PROVIDERS: Admitting Provider Hospitalist; Emergency Provider Emergency Medicine; PCP Family Medicine Geriatric Medicine; Visit Provider Internal Medicine
DX: I87.2 Venous insufficiency (chronic) (peripheral) (principal); J96.01 Acute respiratory failure with hypoxia; L03.115 Cellulitis of right lower limb; E66.2 Morbid (severe) obesity with alveolar hypoventilation; L03.116 Cellulitis of left lower limb; Z68.42 Body mass index [BMI] 45.0-49.9, adult; N30.00 Acute cystitis without hematuria; I27.20 Pulmonary hypertension, unspecified; M06.9 Rheumatoid arthritis, unspecified; N18.32 Chronic kidney disease, stage 3b; I12.9 Hypertensive chronic kidney disease with stage 1 through stage 4 chronic kidney disease, or unspecified chronic kidney disease; E03.9 Hypothyroidism, unspecified; K21.9 Gastro-esophageal reflux disease without esophagitis; M79.7 Fibromyalgia; E78.5 Hyperlipidemia, unspecified; E87.5 Hyperkalemia; W05.0XXA Fall from non-moving wheelchair, initial encounter; E87.6 Hypokalemia; R82.71 Bacteriuria; Z99.3 Dependence on wheelchair; R60.1 Generalized edema
CPT/HCPCS: 36415; 36600; 71045; 73620; 80048; 81001; 82140; 82803; 83880; 84443; 84484; 85025; 87077; 87086; 87088; 87186; 87426; 93005; 93306; 94002; 97162; 97165; 97530; 97535; 97802; 99251; 99285; Q9957; A4216; C8929; G0463; J1940